=== PATIENT | female | born 1990 | race Caucasian/White ===

== ENCOUNTER 2025-02-27 19:56 | Emergency (ER) | payer OTHER, SELFPAY ==
[2025-02-27 20:40] VITALS: BP 125/76; PULSE 99; RESP 22; TEMP 36.7; O2SAT 98; BMI 25.0
--- NOTE | 2025-02-27 20:58 | ED_ITS ---
<Statement entered by Leatha Hercules DO - 02/28/25 00:02> I was consulted by the DAVID, and we discussed the complexity of the problems being addressed. I approved the treatment and management plan for this patient's care in the emergency department, thus performing a substantive portion of the medical decision making. Leatha Hercules DO Discharge Plan Disposition Patient Disposition: Home, Self-Care Condition: Good Prescriptions Prescriptions: New amoxicillin-pot clavulanate 875-125 mg tablet 1 tab PO BID 7 Days Qty: 14 0RF fluconazole 150 mg tablet 150 mg PO DAILY Qty: 2 0RF Rx Instructions: administer on day 1 of therapy and after antibiotic therapy. Referrals Follow up/Referrals: Mildred De APRN [Primary Care Provider] - See instructions Activity Restrictions/Add. Instructions Additional Instructions/Restrictions: Please return to the emergency department, with any worsening signs or symptoms, please take your antibiotic as prescribed with food, for 7 days, please come back for your rabies vaccination subsequent doses on day 3, 7, 14 and 28, follow-up with your primary care doctor. Clinical Impressions Clinical Impression: Cat bite of finger Instructions Patient Instructions: Animal Bites Print Language Print Language: Tongan Discharge ED Provider: Leatha Hercules General Adult HPI General Chief complaint: Animal Bite Stated complaint: 02/26/25 bit by feral cat, is own Time Seen by Provider: 02/27/25 20:23 Mode of Arrival: Ambulatory Source of Information: Patient Description of Symptoms (Recalled from ER Triage Doc. by RN): pt reports a feral cat scratched her and bit her left hand yesterday. History of Present Illness HPI narrative: 35-year-old female presents the emergency department with a cat bite/cat scratch on her left hand, that occurred yesterday affecting the 3rd, 4th and 5th digits are affected, as well as wrist, there is some redness and swelling around the area, patient was bit/scratched on the medial aspect of those digits, moves extremities to command, admits to subjective fever and chills, denies chest pain shortness of breath nausea vomiting constipation diarrhea, no abdominal pain, no urinary type symptomatology, patient is current everyday smoker (vapes), denies any alcohol use, does have prior history of/former alcohol abuse, recently was admitted for inpatient detox , on naltrexone, denies any other drug use, other past medical history consistent with anxiety/depression, triage vitals are grossly unremarkable. Patient is unsure of the cat's vaccination status describes it as a feral cat . Onset (ago): day(s) Related Data Previous Rx's ?Medication ?Instructions ?Recorded amoxicillin 875 mg-potassium 1 tab PO BID 7 days #14 tabs 02/27/25 clavulanate 125 mg tablet fluconazole 150 mg tablet 150 mg PO DAILY 1 dose #2 tabs 02/27/25 Allergies Allergy/AdvReac Type Severity Reaction Status Date / Time No Known Allergies Allergy Verified 02/27/25 20:39 [facility] Disclaimer: The information contained in this section may have been updated after the patient was seen, as this information can be updated by other users. Social History Smoking Status: Current every day smoker alcohol intake: former current occupational status: other Travel in the last 8 weeks?: None ROS Obtained: Yes All systems reviewed & no additional complaints except as documented Physical Exam General General appearance: alert and in no apparent distress Head Head exam: atraumatic and normocephalic Eye Eye exam: Present PERRL and EOMI ENT ENT exam: Present mucous membranes moist Neck Neck exam: Present normal inspection Chest Chest inspection: Present normal inspection and symmetric chest wall rise Respiratory Respiratory exam: Present normal lung sounds bilaterally; Absent respiratory distress Cardiovascular Cardiovascular exam: Present regular rate and normal rhythm Abdominal Exam Abdominal exam: Present soft; Absent tenderness, guarding or rebound Extremities Exam Extremities exam: Present normal inspection Neurological Exam Neurological exam: Present alert and oriented X3 Psychiatric Psychiatric exam: Present normal affect Skin Skin exam: Present warm, dry, erythema and other (Some mild erythema that is blanchable, around the 3rd, 4th and 5th digits, medial aspect of those digits, as well as the left wrist, with no lymphangitic streaking, otherwise neurovascular intact, patient moves from to command.) Medical Decision Making Medical Records Medical records reviewed: Yes I reviewed the patient's medical records. Screening: Per USPSTF and CDC recommendations, given the prevalence of disease in our region, it is our hospital?s policy to screen for HIV and viral Hepatitis for all patients aged 18 and over and those with ongoing risk factors. Miguel Inquiry Pt receiving controlled substance: No Miguel was queried for this patient: No Vital Signs: 02/27/25 20:40 02/27/25 22:10 Temperature 98.1 F 98.1 F Temperature Source Oral Pulse Rate 74 Pulse Rate [Right] 99 H Respiratory Rate 22 16 Blood Pressure 128/87 Blood Pressure [Right Arm] 125/76 Blood Pressure Mean [Right Arm] 92 02 Sat by Pulse Oximetry 98 Oxygen Delivery Method Room Air Orders (Tests/Meds): ED MEDICATIONS Discontinued Medications Generic Name Dose Route Start Last Admin Trade Name Freq PRN Reason Stop Dose Admin Amoxicillin/Clavulanate Potassium 1 each 02/27/25 20:53 02/27/25 21:44 Amoxicillin/Clavulanate Potassium 875/125mg Tablet PO 02/27/25 20:54 1 each ONCE ONE Administration Ibuprofen 800 mg 02/27/25 20:35 02/27/25 21:44 Ibuprofen 800 Mg Tablet PO 02/27/25 20:36 800 mg ONCE ONE Administration Rabies Immune Globulin 1,451.5 unit 02/27/25 20:59 02/27/25 21:50 Rabies Immune Globulin/Pf 300 Unit/Ml 5ml Vial IM 02/27/25 21:00 1,451.5 unit ONCE ONE Administration Rabies Vaccine 2.5 unit 02/27/25 21:00 02/27/25 21:50 Rabies Vaccine (Pcec)/Pf 2.5 Unit Vial IM 02/27/25 21:01 2.5 unit .ONCE ONE Administration Tetanus/Reduced Diphtheria/Acell Pertussis 0.5 ml 02/27/25 20:35 02/27/25 21:52 Tet/Diphth/Pert-Adult 0.5ml Syringe IM 02/27/25 20:36 0.5 ml .ONCE ONE Administration Medical Decision Narrative: 35-year-old female presents the emergency department with a cat bite/cat scratch to the left hand, differential diagnose include but not limited to cat bite, mammalian bite, cellulitis among others. I discussed patient case with any person Dr. Hercules Will give patient first dose of Augmentin 875 mg p.o. twice daily for 7 days for cat bite, patient opted to obtain rabies prophylaxis, tetanus prophylaxis, due to unknown vaccination status of the cat, will also give 800 mg Motrin p.o. for pain, as well as 150 mg p.o. Diflucan for yeast infection Prophylaxis. Patient was given strict ED return precautions, patient voiced understanding to go Contreet plan/discharge plan, will return on day 3, day 7, day 14 and day 28 for rabies subsequent vaccinations. Critical Care Critical Care Time Critical Care Time: No
[2025-02-27] MEDS: AMOXICILLIN/CLAVULANATE POTASSIUM 875/125MG TABLET 1 EACH PO (21:44)
[2025-02-27] MEDS: IBUPROFEN 800 MG TABLET PO (21:44)
[2025-02-27] MEDS: RABIES IMMUNE GLOBULIN/PF 300 UNIT/ML 5ML VIAL 1451.5 UNIT IM (21:50)
[2025-02-27] MEDS: RABIES VACCINE (PCEC)/PF 2.5 UNIT VIAL IM (21:50)
[2025-02-27] MEDS: TET/DIPHTH/PERT-ADULT 0.5ML SYRINGE 0.5 ML IM (21:52)
[2025-02-27 22:10] VITALS: BP 128/87; PULSE 74; RESP 16; TEMP 36.7; O2SAT 98
== END 2025-02-27 22:13 | disposition home or self-care (01) ==
PROVIDERS: Emergency Provider Emergency Medicine; PCP Nurse Practitioner
DX: S61.452A Open bite of left hand, initial encounter (principal); W55.01XA Bitten by cat, initial encounter; Z23 Encounter for immunization
CPT/HCPCS: 90375; 90471; 90472; 90675; 90715; 96372; 99284

== ENCOUNTER 2025-03-02 16:39 | Outpatient (CLI) | payer OTHER, SELFPAY ==
[2025-03-02] MEDS: RABIES VACCINE (PCEC)/PF 2.5 UNIT VIAL IM (16:55)
== END 2025-03-02 17:02 | disposition home or self-care (01) ==
LOC: INF 16:41
PROVIDERS: PCP Nurse Practitioner; Visit Provider Emergency Medicine
DX: S61.452A Open bite of left hand, initial encounter (principal)
CPT/HCPCS: 90675; 96372

== ENCOUNTER 2025-03-09 15:00 | Outpatient (CLI) | payer OTHER, SELFPAY ==
--- OUTSIDE RECORDS SUMMARY | 2023-04-22 15:45 | XMS_ITS | Encounter Summary ---
Author Organization [place] [address] Care Team Providers Care Coat Padder Name Role Phone Unavailable Primary Care Provider Unavailabl e Encounter Details Date Type Department Care Team (Latest Contact Info) Description 04/22/2023 3:45 PM EDT Hospital Encounter [facility] [address] [place] [address] Left without seen Social History Tobacco Use Types Packs/Day Years Used Date Smoking Tobacco: Every Day Cigarettes 1 12.8 Started: 06/07/2012 Smokeless Tobacco: Never Alcohol Use Standard Drinks/Week Comments Not Currently 6 (1 standard drink = 0.6 oz pure alcohol) Mj Anderson - 6 per day. Overall Financial Resource Strain ([facility]) Answe r Date Recorded How hard is it for you to pa y for the very basics like food, housing, medical care, and heating? Not hard at all 01/07/2021 PHQ-2 Answer Date Recorded PHQ-2 Total Score 0 11/18/2021 [facility] of Occupat ional Health - Occupational Stress Questionnaire Answer Date Recorded Do you feel stress - tense, restless, nervous, or anxious, or unable to sleep at night because your mind is troubled all the time - these days? Not at all 01/07/2021 Exercise Vital Sign Answer Date Recorde d On average, how many days pe r week do you engage in moderate to strenuous exercise (like a brisk walk)? 0 days 01/07/2021 On average, how many minutes do you engage in exercise at this level? 0 min 01/07/2021 Hunger Vital Sign Answer Date Recorded Within the past 12 months, y ou worried that your food would run out before you got the money to buy more. Never true 01/08/20 21 Within the past 12 months, t he food you bought just didn't last and you didn't have money to get more. Never true 01/07/2021 PRAPARE - Transportation Answer Date Re corded In the past 12 months, has l ack of transportation kept you from medical appointments or from getting medications? No 03/2021 In the past 12 months, has l ack of transportation kept you from meetings, work, or from getting things needed for daily living? No 01/07/2021 Comments No Sex and Gender Information Value Date Recorded Sex Assigned at Not on file Legal Sex Female 9:25 PM EDT Gender Identity Not on file Sexual Orientation Not on file COVID-19 Exposure Response Date Recorded In the last 10 days, have yo u been in contact with someone who was confirmed or suspected to have Coronavirus/COVID-19? No / Unsure 04/22/2023 3:43 PM EDT documented as of this encounter Functional Status * Is the person deaf or does he/she have serious difficulty hearing? Answer Date of Assessment Author No 11/18/2021 2:29 PM Annmarie Webster * Is the person blind or does he/she have serious difficulty seeing even when wearing glasses? Answer Date of Assessment Author No 11/18/2021 2:29 PM Annmarie Webster * Does this person have serious difficulty walking or climbing stairs? Answer Date of Assessment Author No 11/18/2021 2:29 PM Annmarie Webster * Does this person have difficulty dressing or bathing? Answer Date of Assessment Author No 11/18/2021 2:29 PM Annmarie Webster * Because of a physical, mental or emotional condition, does this person have difficulty doing errands alone such as visiting a doctor's office or shopping? Answer Date of Assessment Author No 11/18/2021 2:29 PM Annmarie Webster documented as of this encounter Mental Status * Because of a physical, mental or emotional condition, does this person have serious difficulty concentrating, remembering or making decisions? Answer Entry Date Author No 11/18/2021 2:29 PM Annmarie Webster documented in this encounter Plan of Treatment Not on file documented as of this encounter Goals Goal Patient Goal Type Associated Problems Recent Progress Patient-Stated? Author Blood Pressure < 140/90 Blood Pressure 140/86(2024 6:15 PM EDT) No Destinee Galvez MD Maintain a healthy diet, exercise regularly and maintain an ideal body weight General No Reyna Bruce MA Stay Tobacco Free Lifestyle No Reyna Bruce MA documented as of this encounter Visit Diagnoses Not on filedocumented in this encounter
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
--- OUTSIDE RECORDS SUMMARY | 2025-03-09 15:04 | XMS_ITS | Clinical Summary ---
Author Organization [facility] Address [address] [place], [place] [id number] Care Team Providers Care Medical Underwriter Name Role Phone Dax Escobedo MD Primary Care Provider [phone] Allergies No known active allergies Medications ibuprofen (MOTRIN) 600 mg PO tablet Take 1 Tab by mouth every 6 hours as needed (Moderate pain or cramping). 60 Tab 0 10/13/2012 Active oxyCODONE-acetam inophen (PERCOCET) 5-325 mg PO per tablet Take 1-2 Tabs by mouth every 4 hours as needed (Moderate to severe). 30 Tab 0 10/13/2012 Active Active Problems Problem Noted Date Diagnosed Date Single delivery by section 10/09/2012 PIH ( induced hypertension) 10/08/2012 Social History Tobacco Use Types Packs/Day Years Used Date Smoking Tobacco: Former Cigarettes Alcohol Use Standard Drinks/Week Comments No 0 (1 standard drink = 0.6 oz pur e alcohol) Comments Unknown Sex and Gender Information Value Date Recorded Sex Assigned at Not on file Legal Sex Female 7:24 PM EST Gender Identity Not on file Sexual Orientation Not on file Last Filed Vital Signs Vital Sign Reading Time Taken Comments Blood Pressure 120/82 10/14/2012 9:59 AM EST Pulse 99 10/14/2012 9:59 AM EST Temperature 36.7 C (98 F) 10/14/2012 9:59 AM EST Respiratory Rate 16 10/14/2012 9:59 AM EST Oxygen Saturation 98% 10/14/2012 12:20 AM EST Inhaled Oxygen Concentration - - Weight 102.1 kg (225 lb) 10/12/2012 10:45 AM EST Height 170.2 cm (5' 7 ) 10/12/2012 10:45 AM EST Body Mass Index 35.24 10/12/2012 10:45 AM EST Plan of Treatment Not on file Care Teams Medical Underwriter Relationship Specialty Start Date End Date Dax Escobedo MD [address] [place] [address] PCP - General Obstetrics & Gynecology 10/06/12
--- OUTSIDE RECORDS SUMMARY | 2025-03-09 15:04 | XMS_ITS | Encounter Summary ---
Author Organization [place] [address] Care Team Providers Care Tariff Expert Name Role Phone Slick Owens MD Primary Care Provider [phone] Reason for Visit * Reason Onset Date Comments Medication Refill 01/27/2025 Encounter Details Date Type Department Care Team (Late st Contact Info) Description 01/27/2025 Refill SEP Mario [address] [place] [id number] Mildred De, GAME AUTHOR [address] [place] [address] Medication Refill Social History Tobacco Use Types Packs/Day Years Used Date Smoking Tobacco: Every Day Cigarettes 1 12.8 Started: 06/07/2012 Smokeless Tobacco: Never Alcohol Use Standard Drinks/Week Comments Not Currently 6 (1 standard drink = 0.6 oz pure alcohol) Mj Fletcher Justin - 6 per day. Overall Financial Resource Strain (CARDIA) Answe r Date Recorded How hard is it for you to pa y for the very basics like food, housing, medical care, and heating? Not hard at all 01/07/2021 PHQ-2 Answer Date Recorded PHQ-2 Total Score 0 11/18/2021 [facility] of Occupat ional Health - Occupational Stress [...] on file documented as of this encounter Functional Status * Is the person deaf or does he/she have serious difficulty hearing? Answer Date of Assessment Author No 11/18/2021 2:29 PM Annmarie Webster * Is the person blind or does he/she have serious difficulty seeing even when wearing glasses? Answer Date of Assessment Author No 11/18/2021 2:29 PM Annmarie Webster Does this person have serious difficulty walking [...] Refills Last Filled Start Date End Date norgestimate-ethiny l estradioL (TRI-SPRINTEC, 28,) 0.18/0.215/0.25 mg-0.035mg (28) Oral TabletIndications:C ontraceptive education Take 1 Tablet by mouth daily. 28 Tablet 11 01/29/2025 documented in this encounter Plan of Treatment Not on file documented as of this encounter Goals Goal Patient Goal Type Associated Problems Recent Progress Patient-Stated? Author Blood Pressure < 140/90 Blood Pressure 140/86(2024 6:15 PM EDT) Destinee Alford MD Maintain a healthy diet, exercise regularly and maintain an ideal body weight General Reyna Hair MA Stay Tobacco Free Lifestyle No Reyna Bruce MA documented as of this encounter Visit Diagnoses Diagnosis Contraceptive education Other general counseling and advice for contraceptive management documented in this encounter Discontinued Medications Medication Sig Discontinue Reason Start Date End Da te norgestimate-ethinyl estradioL (TRI-SPRINTEC, 28,) 0.18/0.215/0.25 mg-35 mcg (28) Oral TabletIndications:Contra ceptive education Take 1 Tablet by mouth daily. Reorder 12/27/2024 01/27/2025 documented as of this encounter Care Teams Tariff Expert Relationship Specialty Start Date End Date Slick Owens MD [address] [facility] [place] [address] PCP - General Family Medicine 03/01/24 documented as of this encounter
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
--- OUTSIDE RECORDS SUMMARY | 2025-03-09 15:04 | XMS_ITS | Encounter Summary ---
Author [place] [address] Care Team Providers Care Cabinet And Trim Installer Name Role Phone Slick Owens MD Primary Care Provider [phone] Reason for Visit * Reason Onset Date Comments Other 02/28/2025 Question on rabi es vaccine Patient Returning Call 02/28/2025 Vaccine Encounter Details Date Type Department Care Team (Late st Contact Info) Description 02/28/2025 Telephone SEP Mario [address] [place] [address] Mildred De APRN [address] [place] [address] Other (Question on rabies vaccine ); Patient Returning Call (Vaccine ) Social History Tobacco Use Types Packs/Day Years [...] Date Recorded PHQ-2 Total Score 0 11/18/2021 [facility] - Occupational Stress [...] PM Annmarie Webster documented in this encounter Miscellaneous Notes * Telephone Encounter - Georgina Acuña MA - 03/01/2025 1:22 PM EDT Attempted to contact patients mother, no answer and voicemail is full. * Telephone Encounter - Mildred De APRN - 03/01/2025 1:10 PM EDT I have not received the animal information. I would recommend she get the copy and take it to a vetclinic to review to vaccinations as I am not familiar with all the names of vaccines for animals. If they are able to confirm that the cat has had rabies vaccine, then she can stop the vaccines. If not, then she should continue them. Thanks. * Telephone Encounter - Georgina Acuña MA - 03/01/2025 1:01 PM EDT FYI? * Telephone Encounter - Reba Bolton RMA - 03/01/2025 12:59 PM EDT Select the most appropriate reason for this telephone message: Patient Returning Call Reason for call: mom returning Joanne's call Information relayed to patient: called office, unable to reach Patient has additional questions: Yes,please call mom back Further follow-up needed? yes Return Method of Communication: Phone Call Additional Information: N/A * Telephone Encounter - Eleonora Adames RMA - 03/01/2025 12:51 PM EDT Select the most appropriate reason for this telephone message: Patient Returning Call Reason for call: vaccine Information relayed to patient: If the cat is vaccinated, the patient does not need to continue with the rabies vaccine series. Already getting the first vaccines wont hurt her. Patient has additional questions: Mother stated that the national van owner operator of the cat was going to send recordspf vaccine to PCP and she wants to know if she got them Further follow-up needed? yes Return Method of Communication: Phone Call Additional Information: Mother stated that she gave the national van owner operator of the cat information on where it needs to be sent. She does not want to stop the vaccines unless Mildred has seen them * Telephone Encounter - Georgina Acuña MA - 03/01/2025 11:42 AM EDT lmtrc * Telephone Encounter - Mildred De APRN - 02/28/2025 5:08 PM EDT If the cat is vaccinated, the patient does not need to continue with the rabies vaccine series. Already getting the first vaccines wont hurt her. * Telephone Encounter - Leatha Castro MA - 02/28/2025 4:56 PM EDT Can you please advise? * Telephone Encounter - Eleonora Adames RMA - 02/28/2025 4:28 PM EDT Select the most appropriate reason for this telephone message: Other Who is calling (name & relationship to patient if not the patient): Mother What is needed OR why are they calling: Pt was bit by a cat at halfway started pt on Rabies vaccine got the starter vaccine. Found out that cat had vaccines and mother has questions on rather pt needs to continue the vaccines or what should she do. She wants to know about the pre expose vaccinestoo She would like someone to call her back When is this needed by: today Where does this information need to go: PCP Return Method of Communication: Phone Call Additional information:N/A documented in this encounter Plan of Treatment [...] Diagnoses Not on filedocumented in this encounter Care Teams Cabinet And Trim Installer Relationship Specialty Start Date End Date Slick Owens MD [address] [facility] [place] [address] PCP - General Family Medicine 03/01/24 documented as of this encounter
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
--- OUTSIDE RECORDS SUMMARY | 2025-03-09 15:04 | XMS_ITS | Encounter Summary ---
Author Organization [place] [address] Care Team Providers Care Food And Beverage Director Name Role Phone Slick Owens MD Primary Care Provider [phone] Encounter Details Date Type Department Care Team (Latest Contact Info) Description 02/18/2025 External Contact [facility] [address] [place] [address] [place] [address] Salima Baez MD [address] [place] [address] Constipation, unspecified constipation type (Primary Dx); Dermatitis; Abrasions of multiple sites; Hypoglycemia; Hypertriglyceridemia ; Macrocytosis; Overweight (BMI 25.0-29.9); Nicotine use disorder; Screening for STDs (sexually transmitted diseases); Vaginal itching Social History Tobacco Use Types Packs/Day Years [...] Date Recorded PHQ-2 Total Score 0 11/18/2021 [facility] - Occupational Stress [...] Assessment Author No 11/18/2021 2:29 PM JABARI Cali Annmarie Narendra documented as of this encounter Mental Status * Because of a physical, mental or emotional condition, does this person have serious difficulty concentrating, remembering or making decisions? Answer Entry Date Author No 11/18/2021 2:29 PM Annmarie Webster documented in this encounter Progress Notes * Salima Baez MD - 02/18/2025 11:32 AM EDT Consultation Follow-Up - [place]: Patient Identifiers Patient Identifiers: Patient Name: Yuliya Ortiz, Date of : 1990, Age: 35, Admission Date: 02/12/2025 Consultation Reason for the consult: Constipation Skin Rash HPI/patient complaint: Yuliya Ortiz is a 35 years old Female admitted 02/12/2025 seen in follow-up. No BM 6 days. Denies rectal bleeding, abdominal pain, N/V/D Normal appetite Not attending group Also, itchy rash on face, no exposures, lotion not helping. Road rash left lateral knee Have there been any changes to the Review of Systems? If yes indicate below.: Yes Constitutional: Fatigue Cardiovascular: No Complaints Respiratory: No Complaints Gastrointestinal: Constipation Genitourinary: No Complaints Musculoskeletal: No Complaints Skin: Rash, Itching, Dryness, Cuts/abrasions Neurological: No Complaints Endocrine: No Complaints Temperature: ?? F 97.7 Pulse: B/min 89 Blood Pressure: Systolic (mmHg) 112, Diastolic (mmHg) 86 Respirations: Per Minute 16 BMI: BMI: 25.1 Objective VS/physical exam: General: disheveled CV: RRR, no murmur Lungs: clear to auscultation bilaterally Abdomen: non-distended, soft, non-tender Extremities: no edema Neurological: alert, oriented, cooperative, moves all extremities spontaneously Psych: Mood: Anxious Skin: fine, raised erythematous, tiny papules chin and mandibular area, 1.5 excoriated plaque Left lateral lulu Labs: 02/14/2025 03:11 PM HIV Ab/p24 Ag Screen Non Reactive 02/14/2025 03:11 PM HDL Cholesterol 47 mg/dL 02/14/2025 03:11 PM Glucose 58 mg/dL 02/14/2025 03:11 PM Creatinine 0.92 mg/dL 02/14/2025 03:11 PM Bilirubin, Total 0.3 mg/dL 02/14/2025 03:11 PM Ureaplasma spp RAJAT TNP 02/14/2025 03:11 PM Hemoglobin 12.2 g/dL 02/14/2025 03:11 PM ALT (SGPT) 13 IU/L 02/14/2025 03:11 PM Immature Granulocytes 0 % 02/14/2025 03:11 PM Triglycerides 156 mg/dL 02/14/2025 03:11 PM Carbon Dioxide, Total 23 mmol/L 02/14/2025 03:11 PM WBC 6.8 x10E3/uL 02/14/2025 03:11 PM Chlamydia trachomatis, RAJAT TNP 02/14/2025 03:11 PM TSH 0.554 uIU/mL 02/14/2025 03:11 PM eGFR 84 mL/min/1.73 02/14/2025 03:11 PM Globulin, Total 2.2 g/dL 02/14/2025 03:11 PM Lymphs 34 % 02/14/2025 03:11 PM Eos (Absolute) 0.2 x10E3/uL 02/14/2025 03:11 PM Lymphs (Absolute) 2.3 x10E3/uL 02/14/2025 03:11 PM Neutrophils (Absolute) 3.7 x10E3/uL 02/14/2025 03:11 PM Basos 1 % 02/14/2025 03:11 PM VLDL Cholesterol Von 27 mg/dL 02/14/2025 03:11 PM Eos 3 % 02/14/2025 03:11 PM Baso (Absolute) 0.0 x10E3/uL 02/14/2025 03:11 PM Chloride 105 mmol/L 02/14/2025 03:11 PM RBC 3.81 x10E6/uL 02/14/2025 03:11 PM Mycoplasma hominis RAJAT TNP 02/14/2025 03:11 PM Monocytes(Absolute) 0.5 x10E3/uL 02/14/2025 03:11 PM Hematocrit 37.6 % 02/14/2025 03:11 PM Mycoplasma genitalium RAJAT NSPR 02/14/2025 03:11 PM Monocytes 8 % 02/14/2025 03:11 PM Alkaline Phosphatase 106 IU/L 02/14/2025 03:11 PM Hep C Virus Ab Non Reactive 02/14/2025 03:11 PM Potassium 4.6 mmol/L 02/14/2025 03:11 PM LDL Chol Calc (NIH) 59 mg/dL 02/14/2025 03:11 PM Albumin 4.0 g/dL 02/14/2025 03:11 PM Protein, Total 6.2 g/dL 02/14/2025 03:11 PM T4,Free(Direct) 1.10 ng/dL 02/14/2025 03:11 PM Calcium 8.7 mg/dL 02/14/2025 03:11 PM Neisseria gonorrhoeae, RAJAT TNP 02/14/2025 03:11 PM BUN/Creatinine Ratio 17 02/14/2025 03:11 PM Trich vag by RAJAT TNP 02/14/2025 03:11 PM Specimen Status Report [facility] 02/14/2025 03:11 PM MCV 99 fL 02/14/2025 03:11 PM Neutrophils 54 % 02/14/2025 03:11 PM Hemoglobin A1c 5.2 % 02/14/2025 03:11 PM RDW 12.1 % 02/14/2025 03:11 PM MCHC 32.4 g/dL 02/14/2025 03:11 PM MCH 32.0 pg 02/14/2025 03:11 PM [facility] 02/14/2025 03:11 PM Immature Grans (Abs) 0.0 x10E3/uL 02/14/2025 03:11 PM Sodium 143 mmol/L 02/14/2025 03:11 PM Cholesterol, Total 133 mg/dL 02/14/2025 03:11 PM BUN 16 mg/dL 02/14/2025 03:11 PM AST (SGOT) 8 IU/L 02/14/2025 03:11 PM Platelets 336 x10E3/uL 12/16/2024 Lymphs (Absolute) 2.4 x10E3/uL 12/16/2024 RDW [...] T4,Free(Direct) 1.05 ng/dL 12/16/2024 Chloride 103 mmol/L Assessment and Plan: Constipation: -Colace 100 mg BID, Miralax QD PRN -benign abdominal exam without worrisome findings. -behavioral interventions such toileting after meals, allow adequate time and privacy for bowel movements. -initiate activity such as 150 minutes weekly of movement or exercise. -ensure adequate fluids and increase fiber in the diet. -follow-up with PCP at discharge for continued evaluation. Dermatitis: -Aquaphor BID x 5 days Abrasion LLE: -Aquaphor BID x 5 days Hypoglycemia: -02/14/25 Glucose 58 -frequent small meals. -Asymptomatic Hypertriglyceridemia -02/14/25 TG 156 drawn @ 1511 -repeat FLP with PCP, fasting -follow-up with PCP for continued monitoring Macrocytosis -MCV 99 02/14/25 -Multivitamin/Folic Acid/Thiamine -Follow-up with PCP at discharge for evaluation. Overweight (BMI 25.0-29.9) -Current BMI 25.1. -TSH 12/16/2024. -Encourage to maintain a healthy diet, exercise regularly, and maintain an ideal body weight. Nicotine Use Disorder: -Declines tobacco/nicotine cessation. -Continue to [employer] patient on the risks associated with tobacco/nicotine use and urge cessation. -patient offered nicotine replacement therapy. Screening for STDs (sexually transmitted diseases) - Patient requesting routine STD screening. Reports recent sexual encounter without protection. -HIV, HCV antibody, gonorrhea, chlamydia, trichomonas screenings ordered. -02/14/25 HIV and HCV NR, GC/Chl, BV/Trich tests not performed due to collection issues Vaginal itching -Stable -S/P Diflucan 150 mg p.o. tablet ordered one-time only. Electronically Signed By: Salima Baez MD, 02/18/2025 11:32 documented in this encounter Plan of Treatment [...] as of this encounter Visit Diagnoses Diagnosis Constipation, unspecified constipation type- Primary Dermatitis Contact dermatitis and other eczema, due to unspecified cause Abrasions of multiple sites Abrasion or friction burn of other, multiple, and unspecified sites, without mention of infection Hypoglycemia Hypoglycemia, unspecified Hypertriglyceridemia Pure hyperglyceridemia Macrocytosis Other specified diseases of blood and blood-forming organs Overweight (BMI 25.0-29.9) Overweight Nicotine use disorder Tobacco use disorder Screening for STDs (sexually transmitted diseases) Screening examination for venereal disease Vaginal itching Pruritus of genital organs documented in this encounter Care Teams Food And Beverage Director Relationship Specialty Start Date End Date Slick Owens MD [address] [facility] [place] [address] PCP - General Family Medicine 03/01/24 documented as of this encounter
--- OUTSIDE RECORDS SUMMARY | 2025-03-09 15:04 | XMS_ITS | Encounter Summary ---
Author [place] [address] Care Team Providers Care Emr Implementation Specialist Name Role Phone Slick Owens MD Primary Care Provider [phone] Reason for Visit * Reason Onset Date Comments Medication Management 12/28/2024 Decrease d ose on prozac, add buspar to daily medication regimen, and mom wants to talk to nurse at office regarding labs for 12/27/24 Encounter Details Date Type Department Care Team (Late st Contact Info) Description 12/28/2024 Telephone [facility] [address] [place] [address] Mildred De APRN [address] [place] [address] Medication Management (Decrease dose on prozac, add buspar to daily medication regimen, and mom wants to talk to nurse at office regarding labs for 12/27/24) Social History Tobacco Use Types Packs/Day Years [...] Date Recorded PHQ-2 Total Score 0 [facility]/18/2021 [facility] - Occupational Stress Questionnaire Answer Date Recorded [...] Telephone Encounter - Georgina Acuña MA - 12/29/2024 8:11 AM EDT Attempted to contact patient to go over lab results from patients appointment the other day. * Telephone Encounter - Reba Bolton RMA - 12/28/2024 3:37 PM EDT Select the most appropriate reason for this telephone message: Medication Management/Problem Who is calling? Other pt's mom What medication(s) do you have concerns about: FLUoxetine (PROZAC) 20 mg Oral Capsule (Discontinued) 90 Capsule 3 08/17/2023 08/17/2023 Sig - Route: Take 1 Capsule by mouth daily. - Oral Mom is calling requesting PCP to decrease dose for prozac 20 mg to 10 mg as she feels like patient is being over medicated - her anxiety is starting to keep back up again x today - please advise mom. Prescribing provider: Antwon Arshad MD What are your concerns/request: decrease in dosage Desired outcome: Decrease in dosage Last appointment date: 12/27/24 last seen by PATO De Pharmacy: [id number] - [place] [address] - [address] - [phone] Return Method of Communication: Phone Call Additional Information: mom would like to speak with a nurse at the office in regards to patient's lab work she had completed yesterday - call center did not release any results to mom as patient is over 16 and there is a test and STD results to go over. Mom states she gave patient her 1st dose of buspar and she did really well on this and mom wants toadd this medication to her daily regimen - please advise mom. documented in this encounter Plan of Treatment [...] on filedocumented in this encounter Care Teams Emr Implementation Specialist Relationship Specialty Start Date End Date Slick Owens MD [address] [facility] [place] [address] PCP - General Family Medicine 03/01/24 documented as of this encounter
--- OUTSIDE RECORDS SUMMARY | 2025-03-09 15:04 | XMS_ITS | Encounter Summary ---
Author Organization [place] [address] Care Team Providers Care Business Test Analyst Name Role Phone Slick Owens MD Primary Care Provider [phone] Encounter Details Date Type Department Care Team (Late st Contact Info) Description 02/27/2025 Orders Only [facility] [address] [place] [address] Danielle Wilkerson, [facility] Social History Tobacco Use Types Packs/Day Years [...] Recorded PHQ-2 Total Score 0 11/18/2021 [facility] Occupat ional [facility] - Occupational Stress [...] Refills Last Filled Start Date End Date naltrexone microspheres (VIVITROL) IM Suspension,Sust.Rel ease Recon Inject 4.2 mL into the muscle every 28 days. 1 Each 02/27/2025 documented in this encounter Plan of Treatment Not on file documented as of this encounter Goals Goal Patient Goal Type Associated Problems Recent Progress Patient-Stated? Author Blood Pressure < 140/90 Blood Pressure 140/86(2024 6:15 PM EDT) No Desitnee Galvez MD Maintain a healthy diet, exercise regularly and maintain an ideal body weight General No Reyna Bruce MA Stay Tobacco Free Lifestyle No Reyna Bruce MA documented as of this encounter Visit Diagnoses Not on filedocumented in this encounter Care Teams Business Test Analyst Relationship Specialty Start Date End Date Slick Owens MD [address] [facility] [address] [place] [id number] PCP - General Family Medicine 03/01/24 documented as of this encounter
--- OUTSIDE RECORDS SUMMARY | 2025-03-09 15:04 | XMS_ITS | Clinical Summary ---
Author Organization [facility] Address [address] [place] [phone] Phone Care Team Providers Care Tree Topper Name Role Phone Joe Viola WHYTE Primary Care Physician [phone] Conditions or Problems Problem Name Problem Code Onset Date Status Entry Date Provider Comment Standard Description Annotate Body mass index (BMI) 29.0-29.9; adult Z68.29 (ICD-10-CM ) 10/24 Active 10/24 Amber Conde APRN Body mass index [BMI] 29.0-29.9, adult Body mass index (BMI) 28.0-28.9; adult Z68.28 (ICD-10-CM ) 11/22 Correction 11/22 Amber Conde APRN Body mass index [BMI] 28.0-28.9, adult Sinusitis-ac darcie 42027813 (SNOMED CT) 10/24 Inactive 10/24 Amber Conde APRN Acute sinusitis Sore throat 522408770 (SNOMED CT) 10/24 Inactive 10/24 Amber Conde APRN Pain in throat Sinusitis-ac darcie 90985085 (SNOMED CT) 10/24 Inactive 10/24 Amber Conde APRN Acute sinusitis Body mass index (BMI) 28.0-28.9; adult Z68.28 (ICD-10-CM ) 11/22 Removed 11/22 Yohana Salas APRN Body mass index [BMI] 28.0-28.9, adult [facility] Lack of physical exercise Z72.3 (ICD-10-CM ) 11/22 Active 11/22 Yohana Lennyert ENVIRONMENTAL PERMITTING SPECIALIST Lack of physical exercise [facility] Financial insecurity Z59.86 (ICD-10-CM ) 11/22 Active 11/22 Yohana Eppert ENVIRONMENTAL PERMITTING SPECIALIST Financial insecurity [facility] Transportati on insecurity Z59.82 (ICD-10-CM ) 11/22 Active 11/22 Yohana Galvezert ENVIRONMENTAL PERMITTING SPECIALIST Transportation insecurity [facility] Lack of adequate food Z59.48 (ICD-10-CM ) 11/22 Active 11/22 Yohana Eppert ENVIRONMENTAL PERMITTING SPECIALIST Other specified lack of adequate food Screening for 689344421 (SNOMED CT) 11/22 Active 11/22 Yohana Salas APRN Procedure carried out on subject Body mass index (BMI) 25.0-25.9; adult Z68.25 (ICD-10-CM ) 10/11 Correction 10/11 Yohana Salas APRN Body mass index [BMI] 25.0-25.9, adult Std screening 572983454 (SNOMED CT) 11/22 Active 11/22 Yohana Salas APRN Venereal disease screening Screening for chlamydia 047703819 (SNOMED CT) 10/11 Active 10/11 Usama Hills MD Procedure carried out on subject Screening Pap smear exam for cervical cancer 666883902 (SNOMED CT) 10/11 Active 10/11 Usama Hills MD Procedure carried out on subject Body mass index (BMI) 25.0-25.9; adult Z68.25 (ICD-10-CM ) 10/11 Removed 10/11 Usama Hills MD Body mass index [BMI] 25.0-25.9, adult Body mass index (BMI) 26.0-26.9; adult Z68.26 (ICD-10-CM ) 10/07 Correction 10/07 Usama Hills MD Body mass index [BMI] 26.0-26.9, adult Urinary tract infection 47440934 (SNOMED CT) 10/11 Active 10/11 Usama Hills MD Urinary tract infectious disease Pelvic inflammatory disease, acute 874091425 (SNOMED CT) 10/11 Active 10/11 Usama Hills MD Acute pelvic inflammatory disease Body mass index (BMI) 26.0-26.9; adult Z68.26 (ICD-10-CM ) 10/07 Removed 10/07 Della Barragan RN Body mass index [BMI] 26.0-26.9, adult Bacterial vaginosis 573417180 (SNOMED CT) 10/07 Active 10/07 Della Barragan RN Bacterial vaginosis Gonorrhea, acute 57003317 (SNOMED CT) 10/07 Active 10/07 Della Barragan RN Gonorrhea Acute cystitis 95129883 (SNOMED CT) Active Chastity Weinstein ENVIRONMENTAL PERMITTING SPECIALIST Acute cystitis GENERAL COUNSELING PRESCRIPTION ORAL CONTRACEPTS Z30.011 (ICD-10-CM ) 06/12 Active 06/12 Thelma Greenfield CNM Encounter for initial prescription of contraceptive pills INTRAUTERINE CONTRACEPTIV E DEVICE REMOVAL 66860314 (SNOMED CT) 06/12 Active 06/12 Kristine Whitley MA Removal of intrauterine device ANXIETY DISORDER, SITUATIONAL, MILD 027945650 (SNOMED CT) 02/21 Active 02/21 Dax Escobedo Anxiety disorder VULVOVAGINIT IS 10721065 (SNOMED CT) 02/21 Inactive 02/21 Dax Escobedo Vulvovaginitis NORMAL 1ST Z34.00 (ICD-10-CM ) 04/14 Resolved 04/14 Dax Escobedo Encounter for supervision of normal first , unspecified trimester NORMAL 1ST Z34.00 (ICD-10-CM ) 04/14 Removed 04/14 Usama Hills MD Encounter for supervision of normal first , unspecified trimester Medications Medication Instructions Start Date Stop Date Generic Name NDC Provider IBUPROFEN 600 MG TABS Take 1 tablet by mouth every six hours for pain/fever Take with food ibuprofen 88783976569 Amber Conde APRN Astepro Allergy 205.5 mcg (0.15 %) spray,non-aerosol Corn 1 spray into both nostrils twice a day azelastine 42656041464 Amber Conde APRN MUCINEX MAXIMUM STRENGTH 1200 MG [id number] Take 1 tablet by mouth every twelve hours NEEDED FOR CONGESTION. TAKE WITH 8OZ OF WATER. guaifenesin 69265897586 Amber Conde APRN ZITHROMAX Z-CECIL 250 MG TABS Take 2 tablet by mouth once a day as directed for 1 days, then take 1 tablet by mouth once a day as directed for 4 days azithromycin 39296862682 Amber Conde APRN VENTOLIN HFA 108 (90 Base) MCG/ACT AERS Inhale 2 puff using inhaler every four to six hours as directed NEEDED FOR WHEEZING AND FOR SHORTNESS OF BREATH albuterol sulfate 53069442784 Amber Conde APRN METRONIDAZOLE 0.75 % GEL Insert 1 applicatorful into vagina once a day for 5 days 10/11 metronidazole 70942508111 Usama Hills MD CEPHALEXIN 500 MG CAPS Take 1 capsule by mouth four times a day 10/16 cephalexin 37035667769 Usama Hills MD METRONIDAZOLE 500 MG TABS Take 1 tablet by mouth twice a day 10/21 metronidazole 62673662851 Usama Hills MD ZITHROMAX 250 MG TABS Take 1 tablet by mouth once a day 10/21 azithromycin 24177747943 Usama Hills MD METRONIDAZOLE 0.75 % GEL Insert 1 applicatorful into vagina once a day for 5 days metronidazole 52913973583 Belén Rucker APRN MACROBID 100 MG CAPS Take 1 capsule by mouth twice a day for 5 days 10/07 nitrofurantoin monohyd/m-cryst 52166536061 Hyacinth Tellez MA DIFLUCAN 150 MG TABS Take 1 tablet by mouth single dose May repeat in 7 days /04 fluconazole 41684946280 Hyacinth Christian Rosalinda BROWN MACROBID 100 MG CAPS Take 1 capsule by mouth twice a day for 5 days nitrofurantoin monohyd/m-cryst 08489808142 Chastity Weinstein APRN DIFLUCAN 150 MG TABS Take 1 tablet by mouth single dose May repeat in 7 days fluconazole 00574712989 Chastity Weinstein ENVIRONMENTAL PERMITTING SPECIALIST TRI-SPRINTEC 0.18/0.215/0.25 MG-35 MCG TABS 1 daily 06/12 NORGESTIM-ETH ESTRAD TRIPHASIC 01075838328 Thelma Greenfield CNM MIRENA (52 MG) 20 MCG/24HR INTRAUTERINE INTRAUTERINE DEVICE 1 DEVICE 06/12 LEVONORGESTREL 62768642383 Thelma Greenfield CNM MIRENA (52 MG) 20 MCG/24HR INTRAUTERINE INTRAUTERINE DEVICE 1 DEVICE LEVONORGESTREL 98284089090 Dax Escobedo NITROFURANTOIN MACROCRYSTAL 100 MG CAPS Take 1 capsule by mouth every 12 hours for seven days to treat urinary tract infection 02/21 NITROFURANTOIN MACROCRYSTAL 65212344781 Kristine Whitley MA NITROFURANTOIN MACROCRYSTAL 100 MG CAPS Take 1 capsule by mouth every 12 hours for seven days to treat urinary tract infection NITROFURANTOIN MACROCRYSTAL 67484092659 Usama Hills MD Medications Administered No information available. Allergies, Adverse Reactions, Alerts Allergy Name Reaction Description Start Date Severity Statu s Provider MACROBID Moderate Active Della farrar RN Results Date Name Value Unit Range Flag Description Clinical Summary: Preload En try for OB GC DNA PROBE NEGATIVE Neisser ia gonorrhoeae DNA [Presence] in Cervical mucus by RAJAT with probe detection CHLAMYD DNA NEGATIVE Chlamydi a trachomatis and Neisseria gonorrhoeae and Trichomonas vaginalis DNA [Identifier] in Specimen by RAJAT with probe detection Lab Report: THINPREP TIS PAP AND HPV mRNA E6/E7, CHLAMYDIA/N.GONORRHOEAE ... HPV RESULT Not Detected Not Detected N Human papilloma virus 16 and 18 and 31+33+35+39+45+51+52 +56+58+59+66+68 DNA [Interpretation] in Cervix Office Visit: STD screen PREG TST URN negative beta HC G, urine, semiquantitative SPEC GR URIN 1.015 Specific gravity of Urine by Test strip PH URINE 6.0 pH of Urine by Test strip APPEARANCE U clear Appearan ce of Urine UA COLOR yellow Color of Uri ne GLUCOSE, URN negative Glucose [Mass/volume] in Urine by Test strip BILIRUBIN UR negative Bilirub in.total [Presence] in Urine by Test strip KETONES URN negative Ketones [Mass/volume] in Urine by Test strip BLOOD UR DIP negative blood i n urine (hemoglobin) by dipstick PROTEIN, URN negative protein , urine, semiquantitative (dipstick) UROBILINOGEN negative Urobili nogen [Presence] in Urine by Test strip NITRITE URN negative Nitrite [Presence] in Urine by Test strip WBC DIPSTK U negative Leukocy te esterase [Presence] in Urine by Test strip Lab Report: BV/VAGINITIS PIT[place] EL DNA PROBE, CHLAMYDIA/N. GONORRHOEAE RNA, ... DNAPROBECAND NOT DETECTED NOT DETECTED N Katie guilliermondii DNA [Presence] in Specimen by RAJAT with probe detection VAGCULTGARDN NOT DETECTED NOT DETECTED N Vaginal Culture Gardnerella TRICHO WET NOT DETECTED NOT DETECTED N Trichomonas vaginalis [Presence] in Genital specimen by Wet preparation Office Visit: sinusitis LABS ORDERED Strep Screen 89947 Laboratory tests ordered RAPID STREP negative Streptoc occus pyogenes DNA [Presence] in Throat by RAJAT with non-probe detection Plan of Care Type Date Detail Pending order Strep Screen 878 80 Pending order T2 BV Yeast Tric h Culture (Affirm) Pending order T1 G.C. Chlamydi a Pending order Urine Dip Auto 8 1003 Pending order Test 8 1025 Pending order Injection(s) Ord ered Pending order Urine Dip Auto 8 1003 Pending order Test 8 1025 Pending order T1 ThinPrep w HR HPV/GC/Chlamydia mRNA E6/E7 Pending order T2 BV Yeast Tric h Culture (Affirm) Pending order Injection(s) Ord ered Pending order T1 G.C. Chlamydi a Pending order T2 BV Yeast Tric h Culture (Affirm) Pending order Test 8 1025 Pending order Bacterial Vagino sis/Vaginitis Panel Pending order Urine Dip Auto 8 1003 Pending order Genetic Counseli ng Pending order Ultras ound with Consult Pending order Urine Culture Patient education Patient Educat ion Given Patient education Patient Educat ion Given Procedures Code Procedure Name Date Entry Date [facility] [email or web address]]-[id number] Medication Reconciliation CPT-3074F Most recent systolic blood pressure <130 mm Hg CPT-3079F Most recent diastoli c blood pressure 80-89 mm Hg CPT-1159F Medication list docu mented in medical record CPT-1160F Review of all medica tions by a prescribing practitioner SCT-[id number] Giving encouragement to exercise SCT-6648232 Former smoker CPT-1159F Medication list docu mented in medical record [facility] [email or web address]]-[id number] Medication Reconciliation CPT-3074F Most recent systolic blood pressure <130 mm Hg CPT-3079F Most recent diastoli c blood pressure 80-89 mm Hg CPT-1160F Review of all medica tions by a prescribing practitioner [facility] 28262 T2 BV Yeast Trich Culture (Affirm) 11/22 [facility] 17920 T1 G.C. Chlamydia Inj Order Injection(s) Ordered CPT-85613 Urine Dip Auto 29485 CPT-28995 Test 81465 [facility] 31283 T1 ThinPrep w HR HPV /GC/Chlamydia mRNA E6/E7 [facility] 44505 T2 BV Yeast Trich Culture (Affirm) 10/11 CPT-3074F Most recent systolic blood pressure <130 mm Hg CPT-3079F Most recent diastoli c blood pressure 80-89 mm Hg CPT-1159F Medication list docu mented in medical record [id number] 340B Rocephin 500mg Injection CPT-01729 IMADM >18YR IM ROUTE 1ST VAC/TOXOID 08/11 SCT-[id number] Medication Reconciliation Inj Order Injection(s) Ordered SCT-[id number] Medication Reconciliation [id number] 340B Rocephin 500mg Injection CPT-56174 IMADM >18YR IM ROUTE 1ST VAC/TOXOID 08/07 CPT-3075F Most recent systolic blood pressure 130-139 mm Hg CPT-3079F Most recent diastoli c blood pressure 80-89 mm Hg SCT-[id number] Medication Reconciliation SCT-475862674 Giving encouragement to exercise [facility] 22215 T1 G.C. Chlamydia [facility] 45451 T2 BV Yeast Trich Culture (Affirm) CPT-26117 Test 47656 CPT-07845 IUD Removal 38392 22734 [facility] Test # Bacterial Vaginosis/Vaginitis Panel CPT-43334 Urine Dip Auto 78286 GC PN Genetic Counseling US Ultrasound with Consult CPT-64500 Urine Culture Vital Signs Date Name Value Unit Description BMI (Body Mass Index) 29.07 kg/m2 Bod y Mass Index (Ratio) Body Temperature 98.1 [degF] temperat ure E&M Body Temperature 36.72 Fabiana temperat ure in centigrade E&M BP Diastolic 80 mm[Hg] blood pressu re, diastolic BP Systolic 118 mm[Hg] blood pressur e, systolic BSA (Body Surface Area) 2.04 b janneth surface area Heart Rate 98 /min pulse rate Height 68 [in_us] height E&M Height 172.72 cm height in cent imeters E&M Weight Measured 86.59 kg weight in kilograms E&M Weight Measured 190.5 [lb_av] weight E& M Weight Measured 190.5 [lb_av] weight E& M Heart Rate 106 /min pulse rate 10 Immunizations No information available. Advance Directives No information available.
--- OUTSIDE RECORDS SUMMARY | 2025-03-09 15:04 | XMS_ITS | Encounter Summary ---
Author Organization [place] [address] Care Team Providers Care Building Construction Professor Name Role Phone Slick Owens MD Primary Care Provider Reason for Visit * Reason Onset Date Comments Other 02/21/2025 NEEDS TO DISCUSS VIVITROL Relaying Information 02/21/2025 injection Encounter Details Date Type Department Care Team (Late st Contact Info) Description 02/21/2025 Telephone SEP Mario [address] [place] [address] Midlred De APRN [address] [place] [address] Other (NEEDS TO DISCUSS VIVITROL); Relaying Information (injection ) Social History Tobacco Use Types Packs/Day [...] Date Recorded PHQ-2 Total Score 0 11/18/2021 [facility] of Occupat ional Health - Occupational Stress [...] Date Author No 11/18/2021 2:29 PM EST Annmarie Leiva documented in this encounter Miscellaneous Notes * Telephone Encounter - Danielle Wilkerson CCMA - 03/06/2025 10:28 AM EDT No answer, mailbox full. [facility] pt. Ok to schedule office visit. * Telephone Encounter - Danielle Wilkerson CCMA - 02/27/2025 11:38 AM EDT Sent to specialty pharmacy. Will call when delivered * Telephone Encounter - Bette Alcazar MA - 02/23/2025 12:29 PM EDT Select the most appropriate reason for this telephone message: Relaying Information Relaying Information Who is Calling: Other Pt's mother What information is the caller relaying:pt's mother stated pt didn't get an injection while at [facility].Pt's mother reports pt is currently taking pills but they are making her stomach upset. Further follow-up needed? Yes Return Method of Communication:Phone call Additional Information:N/A * Telephone Encounter - Danielle Wilkerson CCMA - 02/22/2025 9:54 AM EDT LMTRC * Telephone Encounter - Mildred De APRN - 02/21/2025 4:18 PM EDT Ok to schedule. If she got one in [facility], then will schedule 28 days from injection. If she did not get one, we will need to order one then call her once we get it in. * Telephone Encounter - Bel El CCMA - 02/21/2025 4:02 PM EDT Patients mother is calling wanting to see if patient can get a appointment for the Vivitrol shot. Patient was just released from [facility]. Please call mom back to advise. documented in this encounter Plan of Treatment [...] on filedocumented in this encounter Care Teams Building Construction Professor Relationship Specialty Start Date End Date Slick Owens MD [address] [facility] [address] [address] PCP - General Family Medicine 03/01/24 documented as of this encounter
--- OUTSIDE RECORDS SUMMARY | 2025-03-09 15:04 | XMS_ITS | Encounter Summary ---
Author Organization [facility] [address] Care Team Providers Care Development Officer Name Role Phone Slick Owens MD Primary Care Provider [phone] Reason for Visit * Reason Onset Date Comments Refill 12/25/2024 med refill- aski ng for Trazodone PRIOR to upcoming appt on 12/27- please call mom Encounter Details Date Type Department Care Team (Late st Contact Info) Description 12/25/2024 Telephone SEP Mario [address] [place] [address] Mildred De APRN [address] [place] [address] Refill (med refill- asking for Trazodone PRIOR to upcoming appt on 12/27- please call mom ) Social History Tobacco Use Types Packs/Day Years Used Date Smoking Tobacco: Every Day Cigarettes 1 12.8 Started: 06/07/2012 Smokeless Tobacco: Never Alcohol Use Standard Drinks/Week Comments Not Currently 6 (1 standard drink = 0.6 oz pure alcohol) Mj Arriagatessie Justin - 6 per day. Overall Financial Resource Strain (CARDIA) Answe r Date Recorded How hard is it for you to pa y for the very basics like food, housing, medical care, and heating? Not hard at all 01/07/2021 PHQ-2 Answer Date Recorded PHQ-2 Total Score 0 11/18/2021 [facility] of Occupat ional Health - Occupational Stress [...] Date Author No 11/18/2021 2:29 PM Annmarie eWbster documented in this encounter Miscellaneous Notes * Telephone Encounter - Leatha Castro MA - 12/25/2024 4:43 PM EDT Pt mother aware * Telephone Encounter - Dariusz Arshad MD - 12/25/2024 4:31 PM EDT Done Dariusz Arshad MD * Telephone Encounter - Leatha Castro MA - 12/25/2024 4:06 PM EDT Can you please advise if ok to send in Pt? * Telephone Encounter - SarahalexisCrystal - 12/25/2024 3:45 PM EDT Select the most appropriate reason for this telephone message: Medication Refill Who is requesting the refill: Other mom Medication(s)Name/Dosage/Frequency: Disp Refills Start End traZODone (DESYREL) 50 mg Oral Tablet -- -- 01/05/2023 -- Class: Historical Med Disp Refills Start End traZODone (DESYREL) 50 mg Oral Tablet (Discontinued) 30 Tablet 2 01/05/2023 01/07/2023 Sig - Route: Take 1 Tablet by mouth nightly. - Oral Did patient contact the pharmacy first: No How many days left on hand: 0- pt was admitted at [facility] and according to mom when she was discharged she wasn't given this medication at all. She's been without it for 3 days and not doing good withoutit Future appt date w/ prescribing provider: 12/27 [id number] - [place] [address] - [address] [phone] Return Method of Communication: Phone Call Additional Information: med not pended- listed as historical in chart. Mom says when she left [facility] they didn't give her any of this back. She's not doing too good without it and she's not sure she's going to be able to handle not having this for another few days until she's seen on Wednesday. Please advise if this can be sent back in for her PRIOR to her being seen for the hospital f/u. documented in this encounter Plan of Treatment [...] on filedocumented in this encounter Care Teams Development Officer Relationship Specialty Start Date End Date Slick Owens MD [address] [address] PCP - General Family Medicine 03/01/24 documented as of this encounter
--- OUTSIDE RECORDS SUMMARY | 2025-03-09 15:04 | XMS_ITS | Encounter Summary ---
Author Organization [place] [address] Care Team Providers Care Machine Learning Intern Name Role Phone Slick Owens MD Primary Care Provider [phone] Reason for Visit * Reason Onset Date Comments Symptoms (Only Use If Pt Pus hes Back On Scheduling A Visit) 02/27/2025 Cat bite Follow Up 02/27/2025 Mother calling b ack about this Encounter Details Date Type Department Care Team (Late st Contact Info) Description 02/27/2025 Telephone SEP Mario [address] [place] [address] Mildred De APRN [address] [place] [address] Symptoms (Only Use If Pt Pushes Back On Scheduling A Visit) (Cat bite ); Follow Up (Mother calling back about this ) Social History Tobacco Use Types Packs/Day [...] Date Recorded PHQ-2 Total Score 0 11/18/2021 [facility] of Occupat ional Health - Occupational Stress [...] encounter Miscellaneous Notes * Telephone Encounter - Aldo Andrade MA - 02/27/2025 4:01 PM EDT Images from the original note were not included. Select the most appropriate reason for this telephone message: Follow Up Follow Up Who is Calling:Other - Nazia, mother (on ICF) What is the caller following up on (make sure to reference any prior documentation/encounter): Calling back about this; She wanted to know when last Td was administered. I advised that it was 02/14/2017 per [facility]. I reiterated PATO's recommendations below- needs to get another one, if bite punctured skin. She acknowledged. Further follow-up needed?:No Return Method of Communication:N/A Additional Information:FYI * Telephone Encounter - Girish Ocampo MA - 02/27/2025 1:49 PM EDT Informed * Telephone Encounter - Mildred De APRN - 02/27/2025 1:44 PM EDT If bite punctured the skin, would recommend updated tdap (can go to the health dept or pharmacy) Keep wounds clean and dry Followup for any concerns for infection. * Telephone Encounter - Dianna Frank LPN - 02/27/2025 1:27 PM EDT Select the most appropriate reason for this telephone message: Symptoms Call Who is reporting the symptoms: Other mother What symptom(s) is the patient experiencing: pts mother calling, pt was bit by a cat yesterday. States pt was bit on her knuckle. States the area looks okay, no signs of infection. But seeking adviceif pt needs to do thing How long have symptoms been present: 1 day(s) ago Has the patient been seen for this:No If no, was an appointment/E-Visit offered/suggested? Seeking advice Has the patient tried anything to relieve the symptoms and did it help: Yes soap and water If pain, what level on scale 1-10 (10 being the greatest): No pain Desired Outcome: Advice Pharmacy & Location:[id number] [address] - [address] [phone] [[id number]] Return Method of Communication: Phone Call Was patient transferred to Nurse Triage for additional help? N/A Additional Information: Please advise,thank you documented in this encounter Plan of Treatment [...] on filedocumented in this encounter Care Teams Machine Learning Intern Relationship Specialty Start Date End Date Slick Owens MD [address] [place] [address] PCP - General Family Medicine 03/01/24 documented as of this encounter
--- OUTSIDE RECORDS SUMMARY | 2025-03-09 15:04 | XMS_ITS | Encounter Summary ---
Author Organization [place] Address [facility] [place] [address] Care Team Providers Care Sash Repairer Name Role Phone Destinee Galvez MD Primary Care Provider Unav ailable Cira Mosqueda BS, COS Unavailable Unavail able Destinee Galvez MD Primary Care Provider Unav ailable Brenden Connell DO Primary Care Provider [phone] Slick Owens MD Primary Care Provider [phone] Encounter Details Date Type Department Care Team (Late st Contact Info) Description 08/06/2021 Hospital Encounter [facility] [place] [address] Social History Tobacco Use Types Packs/Day Years [...] Date Recorded PHQ-2 Total Score 0 11/18/2021 [facility] of Occupat ional Health - Occupational Stress [...] as of this encounter Functional Status * Cognitive and Functional Status Question Answer Date of Assessment Author Is the person deaf or does h e/she have serious difficulty hearing? No 11/18/2021 2:29 PM Annmarie Ramos Is the person blind or does he/she have serious difficulty seeing even when wearing glasses? No 11/18/2021 2:29 PM Ti Webster Does this person have seriou s difficulty walking or climbing stairs? No 11/18/2021 2:29 PM Annmarie Webster Does this person have diffic ulty dressing or bathing? No 11/18/2021 2:29 PM Moustapha Webster * Alcohol Screening Score Answer Date of Assessment Author 7 08/24/2022 2:00 AM Stephanie Bey RN * Drug Screening Score Answer Date of Assessment Author 0 10/17/2022 7:41 PM Levi Rosas LCSW * Question Answer Date of Assessment Author How often do you have a drin k containing alcohol? 4 08/24/2022 2:00 AM Stephanie Bey R N How many drinks containing a lcohol do you have on a typical day when you are drinking? 1 08/24/2022 2:00 AM Stephanie Bey R N How often do you have six or more drinks on one occasion? 2 08/24/2022 2:00 AM Kal Bey RN How often during the last ye ar have you found that you were not able to stop drinking once you had started? 0 08/24/2022 2:00 AM Stephanie Zhang RN How often during the last ye ar have you failed to do what was normally expected of you because of drinking? 0 08/24/2022 2:00 AM Stephanie Bey RN How often during the last ye ar have you needed a first drink in the morning to get yourself going after a heavy drinking session? 0 08/24/2022 2:00 AM Reynaldo Bey RN How often during the last ye ar have you had a feeling of guilt or remorse after drinking? 0 08/24/2022 2:00 AM Kal Bey RN How often during the last ye ar have you been unable to remember what happened the night before because of your drinking? 0 08/24/2022 2:00 AM Stephanie Bey R N Have you or someone else bee n injured because of your drinking? 0 08/24/2022 2:00 AM Stephanie Saxena RN Has a relative, friend, doct or, or other health care worker been concerned about your drinking or suggested you cut down? 0 08/24/2022 2:00 AM Kal Bey RN AUDIT-C to Determine Rows 4-10 1 08/24/2022 2:00 AM Stephanie Bey RN * PHQ-9 Total Score Answer Date of Assessment Author 0 11/18/2021 2:29 PM Annmarie Webster * Question Answer Date of Assessment Author Do you ever wish you weren't alive anymore? (Past 1 Month) 0 08/29/2021 4:13 PM Cris Thomason RN Have you thought about doing something to make youself not alive anymore? (Past 1 Month) 0 08/29/2021 4:13 PM Cris Thomason RN * Recent Risk Level: Answer Date of Assessment Author No Risk, Screening Complete 08/29/2021 4:13 PM Cris Garcia RN * Question Answer Date of Assessment Author Little interest or pleasure in doing things 0 11/18/2021 2:29 PM Annmarie Webster Feeling down, depressed, or hopeless 0 11/18/2021 2:29 PM Annmarie Webster PHQ-2 Total Score 0 11/18/2021 2:29 PM Annmarie Webster * Suicide Severity Rating Answer Date of Assessment Author No Risk 02/07/2023 12:58 PM EDT Dominique Castro RN * [place] Suicide Severity Rating Scale (Q shift for moderate and high) Question Answer Date of Assessment Author 1. In the past month, have you wished you were or wished you could go to sleep and not wake up? 0 02/07/2023 12:58 PM EDT Avis Larose RN 2. In the past month, have you actually had any thoughts of killing yourself? (If no, skip to question 6) 0 02/07/2023 12:58 PM EDAvis Garcia RN 3. In the past month, have you been thinking about how you might do this? 0 10/18/2022 1:40 AM Priya Rubin RN 4. In the past month, have you had these thoughts and had some intention of acting on them? 0 10/18/2022 1:40 AM Priya Rubin RN 5. In the past month, have you started to work out or worked out the details of how to kill yourself? 0 10/18/2022 1:40 AM Priya Rubin RN 6. Have you ever done anything, started to do anything, or prepared to do anything to end your life? 0 02/07/2023 12:58 PM EDT Dominique Mcdaniels RN documented as of this encounter Mental Status * Cognitive and Functional Status Question Answer Entry Date Author Because of a physical, menta l or emotional condition, does this person have difficulty doing errands alone such as visiting a doctor's office or shopping? No 11/18/2021 2:29 PM Annmarie Hanks Because of a physical, menta l or emotional condition, does this person have serious difficulty concentrating, remembering or making decisions? No 11/18/2021 2:29 PM EST Annmarie Leiva documented in this encounter Plan of Treatment [...] on filedocumented in this encounter Care Teams Sash Repairer Relationship Specialty Start Date End Date Destinee Galvez MD PCP - General Family Medicine 12/19/12 04/09/22 Destinee Galvez MD PCP - General Family Medicine 08/24/22 08/30/22 Brenden Connell DO [address] [place] [address] PCP - General Family Medicine 10/17/22 01/07/23 Slick Owens MD [address] [address] PCP - General Family Medicine 03/01/24 Cira Mosqueda BS, COS Case Party Plan Sales Consultant 10/08/21 01/19/22 documented as of this encounter
[2025-03-09 15:16] VITALS: BP 103/68; PULSE 78; RESP 20; TEMP 36.4; O2SAT 100
[2025-03-09] MEDS: RABIES VACCINE (PCEC)/PF 2.5 UNIT VIAL IM (15:16)
== END 2025-03-09 15:28 | disposition home or self-care (01) ==
LOC: INF 15:02
PROVIDERS: PCP Nurse Practitioner; Visit Provider Emergency Medicine
DX: S61.452A Open bite of left hand, initial encounter (principal); Z23 Encounter for immunization
CPT/HCPCS: 90675; 96372

== ENCOUNTER 2025-03-16 14:39 | Outpatient (CLI) | payer OTHER, SELFPAY ==
--- OUTSIDE RECORDS SUMMARY | 2023-04-22 15:45 | XMS_ITS | Encounter Summary ---
Author Organization [place] [address] Care Team Providers Care Uke Operator Name Role Phone Unavailable Primary Care Provider Unavailabl e Encounter Details Date Type Department Care Team (Latest Contact Info) Description 04/22/2023 3:45 PM EDT Hospital Encounter [facility] [address] [place] [address] Left without seen Social History Tobacco Use Types Packs/Day Years Used Date Smoking Tobacco: Every Day Cigarettes 1 12.8 Started: 06/07/2012 Smokeless Tobacco: Never Alcohol Use Standard Drinks/Week Comments Not Currently 6 (1 standard drink = 0.6 oz pure alcohol) Mj Anderson - 6 per day. Overall Financial Resource Strain ([facility]) Answe r Date Recorded How hard is it for you to pa y for the very basics like food, housing, medical care, and heating? Not hard at all 01/07/2021 PHQ-2 Answer Date Recorded PHQ-2 Total Score 0 11/18/2021 [facility] of Occupat ional Health - Occupational Stress [...]
--- OUTSIDE RECORDS SUMMARY | 2025-03-16 14:42 | XMS_ITS | Encounter Summary ---
Author Organization [place] [address] Care Team Providers Care Tanker Driver Name Role Phone Slick Owens MD Primary Care Provider [phone] Reason for Visit * Reason Onset Date Comments Other 02/28/2025 Question on rabi es vaccine Patient Returning Call 02/28/2025 Vaccine Encounter Details Date Type Department Care Team (Late st Contact Info) Description 02/28/2025 Telephone SEP Mario [address] [place] [address] Mildred De APRN [address] [place] [address] Other (Question on rabies vaccine ); [...] Date Recorded PHQ-2 Total Score 0 11/18/2021 [facility] of Occupat ional Health - Occupational Stress [...] has additional questions: Mother stated that the heavy duty custodian of the cat was going to send recordspf vaccine to PCP and she wants to know if she got them Further follow-up needed? yes Return Method of Communication: Phone Call Additional Information: Mother stated that she gave the heavy duty custodian of the cat information on where it [...] on filedocumented in this encounter Care Teams Tanker Driver Relationship Specialty Start Date End Date Slick Owens MD [address] [facility] [place] [address] PCP - General Family Medicine 03/01/24 documented as of this encounter
--- OUTSIDE RECORDS SUMMARY | 2025-03-16 14:42 | XMS_ITS | Clinical Summary ---
Author Organization [facility] Medical Address [address] [place] [address] Phone Care Team Providers Care University Professor Name Role Phone Joe Viola WHYTE Primary Care Physician [phone] Conditions or Problems Problem Name Problem Code Onset Date Status Entry Date Provider Comment Standard Description Annotate Body mass index (BMI) 29.0-29.9; adult Z68.29 (ICD-10-CM ) 10/24 Active 10/24 Amber Conde APRN Body mass index [BMI] 29.0-29.9, adult Body mass index (BMI) 28.0-28.9; adult Z68.28 (ICD-10-CM ) 11/22 Correction 11/22 Amber Conde APRN Body mass index [BMI] 28.0-28.9, adult Sinusitis-[place] 93526070 (SNOMED CT) 10/24 Inactive 10/24 Amber Conde APRN Acute sinusitis Sore throat 765043643 (SNOMED CT) 10/24 Inactive 10/24 Amber Conde APRN Pain in throat Sinusitis-[place] 97328894 (SNOMED CT) 10/24 Inactive 10/24 Amber Conde APRN Acute sinusitis Body mass index (BMI) 28.0-28.9; adult Z68.28 (ICD-10-CM ) 11/22 Removed 11/22 Yohana Salas APRN Body mass index [BMI] 28.0-28.9, adult [facility] Lack of physical exercise Z72.3 (ICD-10-CM ) 11/22 Active 11/22 Yohana Lennyert LINE TESTER Lack of physical exercise [facility] Financial insecurity Z59.86 (ICD-10-CM ) 11/22 Active 11/22 Yohana Eppert LINE TESTER Financial insecurity [facility] Transportati on insecurity Z59.82 (ICD-10-CM ) 11/22 Active 11/22 Yohana Galvezert LINE TESTER Transportation insecurity [facility] Lack of adequate food Z59.48 (ICD-10-CM ) 11/22 Active 11/22 Yohana Eppert LINE TESTER Other specified lack of adequate food Screening for 352486713 (SNOMED CT) 11/22 Active 11/22 Yohana Salas APRN Procedure carried out on subject Body mass index (BMI) 25.0-25.9; adult Z68.25 (ICD-10-CM ) 10/11 Correction 10/11 Yohana Salas APRN Body mass index [BMI] 25.0-25.9, adult Std screening 341360320 (SNOMED CT) 11/22 Active 11/22 Yohana Salas APRN Venereal disease screening Screening for chlamydia 843653690 (SNOMED CT) 10/11 Active 10/11 Usama Hills MD Procedure carried out on subject Screening Pap smear exam for cervical cancer 215738014 (SNOMED CT) 10/11 Active 10/11 Usama Hills MD Procedure carried out on subject Body mass index (BMI) 25.0-25.9; adult Z68.25 (ICD-10-CM ) 10/11 Removed 10/11 Usama Hills MD Body mass index [BMI] 25.0-25.9, adult Body mass index (BMI) 26.0-26.9; adult Z68.26 (ICD-10-CM ) 10/07 Correction 10/07 Usama Hills MD Body mass index [BMI] 26.0-26.9, adult Urinary tract infection 91430920 (SNOMED CT) 10/11 Active 10/11 Usama Hills MD Urinary tract infectious disease Pelvic inflammatory disease, acute 107331342 (SNOMED CT) 10/11 Active 10/11 Usama Hills MD Acute pelvic inflammatory disease Body mass index (BMI) 26.0-26.9; adult Z68.26 (ICD-10-CM ) 10/07 Removed 10/07 Della Barragan RN Body mass index [BMI] 26.0-26.9, adult Bacterial vaginosis 449485359 (SNOMED CT) 10/07 Active 10/07 Della Barragan RN Bacterial vaginosis Gonorrhea, acute 66476997 (SNOMED CT) 10/07 Active 10/07 Della Barragan RN Gonorrhea Acute cystitis 90831216 (SNOMED CT) Active Chastity Weinstein LINE TESTER Acute cystitis GENERAL COUNSELING PRESCRIPTION ORAL CONTRACEPTS Z30.011 (ICD-10-CM ) 06/12 Active 06/12 Thelma Greenfield CNM Encounter for initial prescription of contraceptive pills INTRAUTERINE CONTRACEPTIV E DEVICE REMOVAL 06103296 (SNOMED CT) 06/12 Active 06/12 Kristine Whitley MA Removal of intrauterine device ANXIETY DISORDER, SITUATIONAL, MILD 360374506 (SNOMED CT) 02/21 Active 02/21 Dax Escobedo Anxiety disorder VULVOVAGINIT IS 42729267 (SNOMED CT) 02/21 Inactive 02/21 Dax Escobedo [...] hours for pain/fever Take with food ibuprofen 67090528078 Amber Conde APRN Astepro Allergy 205.5 mcg (0.15 %) spray,non-aerosol [place] 1 spray into both nostrils twice a day azelastine 52585263878 Amber Conde APRN MUCINEX MAXIMUM STRENGTH 1200 MG [id number] Take 1 tablet by mouth every twelve hours NEEDED FOR CONGESTION. TAKE WITH 8OZ OF WATER. guaifenesin 31781545810 Amber Conde APRN ZITHROMAX Z-CECIL 250 MG TABS Take 2 tablet by mouth once a day as directed for 1 days, then take 1 tablet by mouth once a day as directed for 4 days azithromycin 68862922869 Amber Conde APRN VENTOLIN HFA 108 (90 Base) MCG/ACT AERS Inhale 2 puff using inhaler every four to six hours as directed NEEDED FOR WHEEZING AND FOR SHORTNESS OF BREATH albuterol sulfate 75593656927 Amber Conde APRN METRONIDAZOLE 0.75 % GEL Insert 1 applicatorful into vagina once a day for 5 days 10/11 metronidazole 30402957433 Usama Hills MD CEPHALEXIN 500 MG CAPS Take 1 capsule by mouth four times a day 10/16 cephalexin 62978340208 Usama Hills MD METRONIDAZOLE 500 MG TABS Take 1 tablet by mouth twice a day 10/21 metronidazole 42379521003 Usama Hills MD ZITHROMAX 250 MG TABS Take 1 tablet by mouth once a day 10/21 azithromycin 29468592667 Usama Hills MD METRONIDAZOLE 0.75 % GEL Insert 1 applicatorful into vagina once a day for 5 days metronidazole 72538672206 Belén Rucker APRN MACROBID 100 MG CAPS Take 1 capsule by mouth twice a day for 5 days 10/07 nitrofurantoin monohyd/m-cryst 89895502197 Hyacinth Tellez MA DIFLUCAN 150 MG TABS Take 1 tablet by mouth single dose May repeat in 7 days /04 fluconazole 89322479999 Hyacinth Christian Rosalinda BROWN MACROBID 100 MG CAPS Take 1 capsule by mouth twice a day for 5 days nitrofurantoin monohyd/m-cryst 56079246912 Chastity Weinstein APRN DIFLUCAN 150 MG TABS Take 1 tablet by mouth single dose May repeat in 7 days fluconazole 11653905051 Chastity Weinstein LINE TESTER TRI-SPRINTEC 0.18/0.215/0.25 MG-35 MCG TABS 1 daily 06/12 NORGESTIM-ETH ESTRAD TRIPHASIC 03851055338 Thelma Greenfield CNM MIRENA (52 MG) 20 MCG/24HR INTRAUTERINE INTRAUTERINE DEVICE 1 DEVICE 06/12 LEVONORGESTREL 23661573912 Thelma Greenfield CNM MIRENA (52 MG) 20 MCG/24HR INTRAUTERINE INTRAUTERINE DEVICE 1 DEVICE LEVONORGESTREL 59419693479 Dax Escobedo NITROFURANTOIN MACROCRYSTAL 100 MG CAPS Take 1 capsule by mouth every 12 hours for seven days to treat urinary tract infection 02/21 NITROFURANTOIN MACROCRYSTAL 12565093760 Kristine Whitley MA NITROFURANTOIN MACROCRYSTAL 100 MG CAPS Take 1 capsule by mouth every 12 hours for seven days to treat urinary tract infection NITROFURANTOIN MACROCRYSTAL 07348687692 Usama Hills MD Medications Administered No information [...] Office Visit: sinusitis LABS ORDERED Strep Screen 20225 Laboratory tests ordered RAPID STREP negative Streptoc [...] Procedures Code Procedure Name Date Entry Date [facility]-[id number] Medication Reconciliation CPT-3074F Most recent systolic blood pressure <130 mm Hg CPT-3079F Most recent diastoli c blood pressure 80-89 mm Hg CPT-1159F Medication list docu mented in medical record CPT-1160F Review of all medica tions by a prescribing practitioner SCT-[id number] Giving encouragement to exercise SCT-7874566 Former smoker CPT-1159F Medication list docu mented in medical record [facility]-[id number] Medication Reconciliation CPT-3074F Most recent systolic blood pressure <130 mm Hg CPT-3079F Most recent diastoli c blood pressure 80-89 mm Hg CPT-1160F Review of all medica tions by a prescribing practitioner [facility] 49841 T2 BV Yeast Trich Culture (Affirm) 11/22 [facility] 46404 T1 G.C. Chlamydia Inj Order Injection(s) Ordered CPT-24493 Urine Dip Auto 69477 CPT-36041 Test 81312 [facility] 02782 T1 ThinPrep w HR HPV /GC/Chlamydia mRNA E6/E7 [facility] 24096 T2 BV Yeast Trich Culture (Affirm) 10/11 CPT-3074F Most recent systolic blood pressure <130 mm Hg CPT-3079F Most recent diastoli c blood pressure 80-89 mm Hg CPT-1159F Medication list docu mented in medical record [id number] 340B Rocephin 500mg Injection CPT-84484 IMADM >18YR IM ROUTE 1ST VAC/TOXOID 08/11 SCT-[id number] Medication Reconciliation Inj Order Injection(s) Ordered SCT-[id number] Medication Reconciliation [id number] 340B Rocephin 500mg Injection CPT-90208 IMADM >18YR IM ROUTE 1ST VAC/TOXOID 08/07 CPT-3075F Most recent systolic blood pressure 130-139 mm Hg CPT-3079F Most recent diastoli c blood pressure 80-89 mm Hg SCT-[id number] Medication Reconciliation SCT-606923402 Giving encouragement to exercise Quest 65996 T1 G.C. Chlamydia Quest 27377 T2 BV Yeast Trich Culture (Affirm) CPT-81403 Test 71085 CPT-40675 IUD Removal 35754 09092 [facility] Test # Bacterial Vaginosis/Vaginitis Panel CPT-57109 Urine Dip Auto 61726 GC PN Genetic Counseling US Ultrasound with Consult CPT-61600 Urine Culture Vital Signs Date Name Value [...]
--- OUTSIDE RECORDS SUMMARY | 2025-03-16 14:42 | XMS_ITS | Encounter Summary ---
Author Organization [place] [address] Care Team Providers Care Assistant Strength Coach Name Role Phone Slick Owens MD Primary Care Provider [phone] Reason for Visit * Reason Onset Date Comments Refill 12/25/2024 med refill- aski ng for Trazodone PRIOR to upcoming appt on 12/27- please call mom Encounter Details Date Type Department Care Team (Late st Contact Info) Description 12/25/2024 Telephone SEP Mario [address] [place] [address] Mildred De APRN [address] [place] [address] Refill (med refill- asking for Trazodone [...] Date Recorded PHQ-2 Total Score 0 11/18/2021 [facility] [place] of Occupat ional Health - Occupational Stress [...] on hand: 0- pt was admitted at [facility] and according to mom when she was discharged she wasn't given this medication at all. She's been without it for 3 days and not doing good withoutit Future appt date w/ prescribing provider: 12/27 [id number] [place] [address] - [address] [phone] Return Method of Communication: Phone Call Additional [...] on filedocumented in this encounter Care Teams Assistant Strength Coach Relationship Specialty Start Date End Date Slick Owens MD [address] [address] PCP - General Family Medicine 03/01/24 documented as of this encounter
--- OUTSIDE RECORDS SUMMARY | 2025-03-16 14:42 | XMS_ITS | Encounter Summary ---
Author Organization [place] [address] Care Team Providers Care Physician Representative Name Role Phone Slick Owens MD Primary Care Provider [phone] Encounter Details Date Type Department Care Team (Latest Contact Info) Description 02/13/2025 External Contact [facility] [address] [place] [address] Ryanne Lucio, DOCUMENT SCANNER [address] [place] [address] Medical clearance for psychiatric admission (Primary [...] Date Recorded PHQ-2 Total Score 0 11/18/2021 [facility] [place] of Occupat ional Health - Occupational Stress [...] her. She was in a rehabilitation in [place], [place] and got out 03/2024. She was just here at [facility] back in 12/2024for detox and [...] all into my house. I hired a cotton roll packer when she was 19 YO to get [...] drinking like 8 beers a day until, [facility] for 8 days in 2022 detox from ETOH, and was here in 12/2024 for ETOH/Meth detox/rehab. I did a home drug test on 01/08/2025 Barbiturates', benzo, suboxone, methadone, methamphetamines, PCP, LSD. History of Present Illness: Yulyia Ortiz is a 35 y.o. female seen today for medical clearance for admission to [facility]. The patient presents as a walk-in [...] (HCC) - Risk and recommended cessation. - [facility] protocol in place. - Plan per [...] Tobacco abuse -Cessation product offered. -Continue to port gamble patient on the risks associated with tobacco use and urge cessation. Consults/Follow-ups: PCP I conclude that this patient is medically stable for inpatient psychiatric care.: Yes Documentation was completed in both [facility] and also in the additional EMR system used at [facility]. Electronically Signed: Ryanne Lucio APRN 02/13/2025 3:14 [...] disorder documented in this encounter Care Teams Physician Representative Relationship Specialty Start Date End Date Slick Owens MD [address] [address] PCP - General Family Medicine 03/01/24 documented as of this encounter
--- OUTSIDE RECORDS SUMMARY | 2025-03-16 14:42 | XMS_ITS | Encounter Summary ---
Author Organization [place] [address] Care Team Providers Care Whipped Topping Supervisor Name Role Phone Slick Owens MD Primary Care Provider [phone] Reason for Visit * Reason Onset Date Comments Medication Management 12/28/2024 Decrease d ose on prozac, add buspar to daily medication regimen, and mom wants to talk to nurse at office regarding labs for 12/27/24 Encounter Details Date Type Department Care Team (Late st Contact Info) Description 12/28/2024 Telephone [facility] [address] [place] [address] Mildred De APRN [address] [place] [address] Medication Management (Decrease dose on prozac, [...] Date Recorded PHQ-2 Total Score 0 11/18/2021 [facility] - Occupational Stress Questionnaire Answer [...] 12/27/24 last seen by PATO De Pharmacy: [id number] - [place] [phone] - [address] - [phone] Return Method of Communication: Phone Call Additional [...] on filedocumented in this encounter Care Teams Whipped Topping Supervisor Relationship Specialty Start Date End Date Slick Owens MD [address] [facility] [place] [address] PCP - General Family Medicine 03/01/24 documented as of this encounter
--- OUTSIDE RECORDS SUMMARY | 2025-03-16 14:42 | XMS_ITS | Encounter Summary ---
Author Organization [place] [address] Care Team Providers Care Medical Center Director Name Role Phone Slick Owens MD Primary Care Provider [phone] Encounter Details Date Type Department Care Team (Late st Contact Info) Description 02/27/2025 Orders Only SEP Mario [address] [place] [address] Danielle Wilkerson, [facility] Social History Tobacco Use Types Packs/Day [...] Date Recorded PHQ-2 Total Score 0 11/18/2021 [facility] [place] of Occupat ional Health - Occupational Stress [...] of Assessment Author No 11/18/2021 2:29 PM Annamrie Webster Does this person have serious difficulty [...] on filedocumented in this encounter Care Teams Medical Center Director Relationship Specialty Start Date End Date Slick Owens MD [address] [facility] [address] [place] [id number] PCP - General Family Medicine 03/01/24 documented as of this encounter
--- OUTSIDE RECORDS SUMMARY | 2025-03-16 14:42 | XMS_ITS | Encounter Summary ---
Author Organization [place] [address] Care Team Providers Care Horticulture/Floriculture Teacher Name Role Phone Slick Owens MD Primary Care Provider Reason for Visit * Reason Onset Date Comments Medication Refill 01/27/2025 Encounter Details Date Type Department Care Team (Late st Contact Info) Description 01/27/2025 Refill SEP [facility] [address] [place] [id number] Mildred De, SHOP AND ALTERATION TAILOR [address] [place] [address] Medication Refill Social History Tobacco Use [...] Date Recorded PHQ-2 Total Score 0 11/18/2021 [facility] [place] of Occupat ional Health - Occupational Stress [...] documented as of this encounter Care Teams Horticulture/Floriculture Teacher Relationship Specialty Start Date End Date Slick Owens MD [address] [facility] [place] [address] PCP - General Family Medicine 03/01/24 documented as of this encounter
--- OUTSIDE RECORDS SUMMARY | 2025-03-16 14:42 | XMS_ITS | Encounter Summary ---
Author Organization [place] [address] Care Team Providers Care Media Marketing Director Name Role Phone Slick Owens MD Primary Care Provider [phone] Encounter Details Date Type Department Care Team (Latest Contact Info) Description 02/18/2025 External Contact [facility] [address] [place] [address] [place] [address] Salima Baez MD [address] [place] [address] Constipation, unspecified constipation type (Primary Dx); Dermatitis; [...] Date Recorded PHQ-2 Total Score 0 11/18/2021 [facility] [place] of Occupat ional Health - Occupational Stress [...] TNP 02/14/2025 03:11 PM Specimen Status Report [facility] 02/14/2025 03:11 PM MCV 99 fL 02/14/2025 03:11 PM Neutrophils 54 % 02/14/2025 03:11 PM Hemoglobin A1c 5.2 % 02/14/2025 03:11 PM RDW 12.1 % 02/14/2025 03:11 PM MCHC 32.4 g/dL 02/14/2025 03:11 PM MCH 32.0 pg 02/14/2025 03:11 PM [facility] 02/14/2025 03:11 PM Immature Grans (Abs) 0.0 [...] Use Disorder: -Declines tobacco/nicotine cessation. -Continue to tanacross patient on the risks associated with tobacco/nicotine [...] organs documented in this encounter Care Teams Media Marketing Director Relationship Specialty Start Date End Date Slick Owens MD [address] [facility] [place] [address] PCP - General Family Medicine 03/01/24 documented as of this encounter
--- OUTSIDE RECORDS SUMMARY | 2025-03-16 14:42 | XMS_ITS | Encounter Summary ---
Author Organization [place] [address] Care Team Providers Care Ship'S Pilot Name Role Phone Slick Owens MD Primary Care Provider [phone] Reason for Visit * Reason Onset Date Comments Symptoms (Only Use If Pt Pus hes Back On Scheduling A Visit) 02/27/2025 Cat bite Follow Up 02/27/2025 Mother calling b ack about this Encounter Details Date Type Department Care Team (Late st Contact Info) Description 02/27/2025 Telephone [facility] [address] [place] [address] Mildred De APRN [address] [place] [address] Symptoms (Only Use If Pt Pushes [...] Date Recorded PHQ-2 Total Score 0 11/18/2021 [facility] [place] of Occupat ional Health - Occupational Stress [...] I advised that it was 02/14/2017 per [facility]. I reiterated PATO's recommendations below- needs to [...] No pain Desired Outcome: Advice Pharmacy & Location:[id number] [place] [address] - [address] [phone] [[id number]] Return Method of Communication: Phone Call Was [...] on filedocumented in this encounter Care Teams Ship'S Pilot Relationship Specialty Start Date End Date Slick Owens MD [address] [place] [address] PCP - General Family Medicine 03/01/24 documented as of this encounter
--- OUTSIDE RECORDS SUMMARY | 2025-03-16 14:42 | XMS_ITS | Encounter Summary ---
Author Organization [place] [address] Care Team Providers Care Radiology Receptionist Name Role Phone Slick Owens MD Primary Care Provider [phone] Reason for Visit * Reason Onset Date Comments Other 02/21/2025 NEEDS TO DISCUSS VIVITROL Relaying Information 02/21/2025 injection Encounter Details Date Type Department Care Team (Late st Contact Info) Description 02/21/2025 Telephone [facility] [address] [place] [address] Mildred De APRN [address] [place] [address] Other (NEEDS TO DISCUSS VIVITROL); Relaying [...] Date Recorded PHQ-2 Total Score 0 11/18/2021 [facility] [place] of Occupat ional Health - Occupational Stress [...] No answer, mailbox full. [facility]. Ok to [...] Vivitrol shot. Patient was just released from [facility]. Please call mom back to advise. documented [...] on filedocumented in this encounter Care Teams Radiology Receptionist Relationship Specialty Start Date End Date Slick Owens MD [address] [facility] [address] [address] PCP - General Family Medicine 03/01/24 documented as of this encounter
--- OUTSIDE RECORDS SUMMARY | 2025-03-16 14:43 | XMS_ITS | Encounter Summary ---
Author Organization [place] Address [facility] [place] [address] Care Team Providers Care Senior C Developer Name Role Phone Destinee Galvez MD Primary Care Provider Unav ailable Cira Mosqueda BS, COS Unavailable Unavail able Destinee Galvez MD Primary Care Provider Unav ailable Brenden Connell DO Primary Care Provider [phone] Slick Owens MD Primary Care Provider [phone] Encounter Details Date Type Department Care Team (Late st Contact Info) Description 08/06/2021 Hospital Encounter [facility] [place] [address] Social History Tobacco Use [...] Recorded PHQ-2 Total Score 0 11/18/2021 [facility] [place] of Occupat ional Health - Occupational Stress [...] 12:58 PM EDT Dominique Castro RN * [place] Suicide Severity Rating Scale (Q shift for [...] on filedocumented in this encounter Care Teams Senior C Developer Relationship Specialty Start Date End Date Destinee Galvez MD PCP - General Family Medicine 12/19/12 04/09/22 Destinee Galvez MD PCP - General Family Medicine 08/24/22 08/30/22 Brenden Connell DO [address] [place] [address] PCP - General Family Medicine 10/17/22 01/07/23 Slick Owens MD [address] [address] PCP - General Family Medicine 03/01/24 Cira Mosqueda BS, COS [employer] Worker 10/08/21 01/19/22 documented as of this encounter
--- OUTSIDE RECORDS SUMMARY | 2025-03-16 14:43 | XMS_ITS | Clinical Summary ---
Author Organization [facility] Address [address] [place] [address] Phone Care Team Providers Care Person Investigator Name Role Phone Slick Owens MD Primary Care Provider [phone] Allergies No known active allergies Medications * [...] Mailed tls Last Miguel as expected 01/31/21 [id number] 02/25/2022 No Show Galvez - second letter [...] 01/05/2023 Hx of pancreatitis 01/05/2023 Overview (12/10/2023): Hollis to be related to alcohol intake No [...] with her. I told her to take [id number]-bmqunnt Zyrtec or Claritin in addition to taking [...] assessed and discussed today [facility] alcohol-induced disorder 01/05/2023 12/27/2024 [...] Team Description 02/28/2025 Telephone SEP Mario [address] [place], [place] [id number] Mildred De APRN Other (Question on rabies vaccine ); Patient Returning Call (Vaccine ) 02/27/[address] [place] [address] Lobo CanyonLocMildred, CUSTOM SHOE DESIGNER AND MAKER Symptoms (Only Use If Pt Pushes Back On Scheduling A Visit) (Cat bite ); Follow Up (Mother calling back about this ) 02/27/2025 Orders Only [address] [place] [address] [facility] 02/21/[address] [place] [address] Mildred De, CUSTOM SHOE DESIGNER AND MAKER Other (NEEDS TO DISCUSS VIVITROL); Relaying Information (injection ) 02/18/2025 External Contact [facility] [place] [address] Salima Baez MD Constipation, unspecified constipation type (Primary Dx); Dermatitis; Abrasions of multiple sites; Hypoglycemia; Hypertriglyceridemia ; Macrocytosis; Overweight (BMI 25.0-29.9); Nicotine use disorder; Screening for STDs (sexually transmitted diseases); Vaginal itching 02/13/2025 External Contact [facility] [place] [address] Ryanne Lucio APRN Medical clearance for psychiatric admission (Primary Dx); Alcohol use disorder, severe, dependence (HCC); Marijuana dependence (HCC); Screening for STDs (sexually transmitted diseases); Vaginal itching; Abrasions of multiple sites; Ecchymosis; Overweight (BMI 25.0-29.9); Tobacco abuse 01/27/[address] [place] [address] Mildred De, CUSTOM SHOE DESIGNER AND MAKER Medication Refill 01/09/2025 6:15 PM EDT Office Visit [address] [address] Destinee Madison PA-C Facial swelling (Primary Dx) 12/28/[address] [place] [address] Mildred De APRN Medication Management (Decrease dose on prozac, add buspar to daily medication regimen, and mom wants to talk to nurse at office regarding labs for 12/27/24) 12/27/2024 3:00 PM EDT Office Visit [address] [place] [address] Mildred De APRN Annual physical exam (Primary Dx); Intellectual disability; History of alcohol abuse; Insomnia, persistent; Contraceptive education; Screen for STD (sexually transmitted disease); Screening for thyroid disorder; Mouth sores; Thrush; Vapes nicotine containing substance 12/27/2024 Travel 12/25/2024 Orders Only [address] [place] [address] Dariusz Arshad MD 12/25/[address] [place] [address] Mildred De APRN Refill (med refill- asking for Trazodone PRIOR to upcoming appt on 12/27- please call mom ) 12/24/2024 4:15 PM EDT Office Visit [address] [address] Hannah Hopkins APRN Thrush (Primary Dx) 12/23/2024 Travel 12/19/2024 External Contact [facility] [place] [address] Ryanne Lucio APRN Iron deficiency anemia, unspecified iron deficiency anemia type (Primary Dx); Overweight (BMI 25.0-29.9); Ecchymosis 12/15/2024 External Contact [facility] [place] [address] Leeanne Bond APRN Medical clearance for [...] Date Recorded PHQ-2 Total Score 0 11/18/2021 [facility] [place] of Occupat ional Health - Occupational Stress [...] 12/27/2024 3:32 PM EDT Annual physical exam WRAPPING CHECKER CYTOLOGY REQUEST (PAP ONLY) Routine 11/18/2021 2:49 PM EST Well woman exam with routine gynecological exam from Last 3 Months or Most Recently Relevant to Health Maintenance Results * HIV AG/AB (12/27/2024 3:32 PM EDT) [facility] HIV Ag/AB Non-Reacti ve Non-Reacti ve 12/27/2024 7:55 PM EDT [facility] [employer] Comment:Negative for HIV-1 a ntigen and anti-HIV-1/anti-HIV-2 antibodies. Blood VENOUS BLOOD / Unknown Venipuncture / Unknown 12/27/2024 3:32 PM EDT 12/27/2024 3:32 PM EDT Narrative [facility] [employer] - 12/27/2024 7:55 PM EDT Test performed using Elz[employer]ys electrochemiluminescence immunassay (ECLIA). [facility] IMMUNOLOGY ORDERABLES Final Result [employer] [address] [facility] , [address] [place] [id number] * SYPHILIS SCREEN WITH REFLEX RPR QUANT (12/27/2024 3:32 PM EDT) [facility] Trep Ab Index 0.10 <=0.99 Index Value 12/27/2024 8:30 PM EDT [employer] Comment: < 1.00 - Non-Reactive >=1.00 - Reactive NOTE: All reactive results will be reflexed to Quantitative Non-Treponemal(RPR)test. Blood VENOUS BLOOD / Unknown Venipuncture / Unknown 12/27/2024 3:32 PM EDT 12/27/2024 3:32 PM EDT Mildred LongYing Investment ManagementN CHEMISTRY ORDERABLES Final Result [facility] [employer] [address] [facility] , [place] [address] * VITAMIN B12/ FOLIC ACID (12/27/2024 3:32 PM EDT) Vitamin B12 446 232 - 1,245 pg/mL 12/27/2024 7:55 PM EDT [facility] [employer] [facility] Folate 12.30 >=4.80 ng/mL 12/27/2024 7:55 PM EDT [facility] [employer] Blood VENOUS BLOOD / Unknown Venipuncture / Unknown 12/27/2024 3:32 PM EDT 12/27/2024 3:32 PM EDT Narrative [facility] [employer] - 12/27/2024 7:55 PM EDT Ingestion of byron doses of biotin (>5 mg/day) taken within 8 hours of drawing blood sample can interfere with this immunoassay test. [employer] CHEMISTRY ORDERABLES Final Result Performing Organization Address [facility]/ZIP Co de Phone Number [facility] [employer] [address] [facility] , [place] [address] * TSH REFLEX TO FT4 (12/27/2024 3:32 PM EDT) TSH Reflex 0.815 0.270 - 4.200 mcIU/mL 12/27/2024 7:26 PM EDT [facility] [employer] Blood VENOUS BLOOD / Unknown Venipuncture / Unknown 12/27/2024 3:32 PM EDT 12/27/2024 3:32 PM EDT Narrative [employer] - 12/27/2024 7:26 PM EDT Ingestion of byron doses of biotin (>5 mg/day) taken within 8 hours of drawing blood sample can interfere with this immunoassay test. [employer] CUSTOM SHOE DESIGNER AND MAKER CHEMISTRY ORDERABLES Final Result Performing Organization Address City/[facility]/ZIP Co de Phone Number [facility] [employer] [address] [facility] , [place] [address] * (ABNORMAL) VITAMIN D 25 HYDROXY (12/27/2024 3:32 PM EDT) Vit D 25 OH 29.3(L) 30.0 - 150.0 ng/mL 12/27/2024 7:55 PM EDT [facility] [employer] Comment: Preferred: >= 30 ng/mL Insufficient: 21-29 ng/mL Deficient <= 20 ng/mL Possible Toxicity: >150 ng/mL Samples should not be taken from patients receiving therapy with high biotin doses (i.e. > 5 mg/day) until at least 8 hours following the last biotin administration. Blood VENOUS BLOOD / Unknown Venipuncture / Unknown 12/27/2024 3:32 PM EDT 12/27/2024 3:32 PM EDT Mildred De CUSTOM SHOE DESIGNER AND MAKER CHEMISTRY ORDERABLES Final Result [facility], [facility] [address] [facility] , [place] [address] * ACUTE HEPATITIS PANEL (12/27/2024 3:32 PM EDT) Pathologist [facility] Hep Bs Ag Non-Reacti ve Non-React avinash 12/27/2024 7:33 PM EDT [facility] [employer] Comment:HBsAg not detected. Does not exclude possibility of exposure to HBV. Hep B Core IgM Non-Reacti ve Non-React avinash 12/27/2024 7:33 PM EDT [facility], [facility] Hep A IgM Non-Reacti ve Non-React avinash 12/27/2024 7:33 PM EDT [facility] [employer] [employer] Hep C Ab Non-Reacti ve Non-React avinash 12/27/2024 7:33 PM EDT [facility] [employer] [employer] Comment:No antibodies to HCV detected. Does not exclude possibility of exposure to HCV. Blood VENOUS BLOOD / Unknown Venipuncture / Unknown 12/27/2024 3:32 PM EDT 12/27/2024 3:32 PM EDT Narrative [facility] [employer], [facility] - 12/27/2024 7:33 PM EDT Test performed using Elzbieta Elecsys electrochemiluminescence immunassay (ECLIA). Mildred Kenisha WHYTE CHEMISTRY ORDERABLES Final Result [facility] [address] [facility] , [place] [address] * (ABNORMAL) CBC WITH DIFF (12/27/2024 3:32 PM EDT) Pathologist [facility] WBC 7.4 3.7 - 10.3 x10(3)/mcL 12/27/2024 7:01 PM EDT [facility] RBC 4.39 3.90 - 5.20 x10(6)/mcL 12/27/2024 7:01 PM EDT [facility] Hgb 13.9 11.2 - 15.7 g/dL 12/27/2024 7:01 PM EDT [facility] Hct 42.2 34.0 - 45.0 % 12/27/2024 7:01 PM EDT [facility] MCV 96.1 80.0 - 100.0 fL 12/27/2024 7:01 PM EDT [facility] MCH 31.7 26.0 - 34.0 pg 12/27/2024 7:01 PM EDT [facility] MCHC 32.9 30.7 - 35.5 g/dL 12/27/2024 7:01 PM EDT [facility] RDW 12.8 <=14.9 % 12/27/2024 7:01 PM EDT [facility] Platelet 488(H) 155 - 369 x10(3)/mcL 12/27/2024 7:01 PM EDT [facility] MPV 9.4 8.8 - 12.5 fL 12/27/2024 7:01 PM EDT [facility] Neut Percent 67.2 % 12/27/2024 7:01 PM EDT [facility] Comment:Neutrophils equals s egs plus bands Imm Gran% 0.1 % 12/27/2024 7:01 PM EDT [facility] Comment:Automated count of m etamyelocytes, myelocytes and promyelocytes. Lymph Percent 21.9 % 12/27/2024 7:01 PM EDT [facility] Ross Percent 7.8 % 12/27/2024 7:01 PM EDT [facility] Eos Percent 2.3 % 12/27/2024 7:01 PM EDT [facility] Baso Percent 0.7 % 12/27/2024 7:01 PM EDT [facility], [facility] Neut # 5.0 1.6 - 6.1 x10(3)/[facility] 12/27/2024 7:01 PM EDT [facility] Comment:Neutrophils equals s egs plus bands IMMGRAN# 0.0 0.0 - 0.1 x10(3)/mcL 12/27/2024 7:01 PM EDT [facility] Comment:Automated count of m etamyelocytes, myelocytes and promyelocytes. An absolute IG <0.1 is reported as 0.0. Lymph # 1.6 1.2 - 3.9 x10(3)/mcL 12/27/2024 7:01 PM EDT [facility] Ross # 0.6 0.3 - 0.9 x10(3)/mcL 12/27/2024 7:01 PM EDT [facility] Eos# 0.2 0.0 - 0.5 x10(3)/[facility] 12/27/2024 7:01 PM EDT [facility] Baso # 0.1 0.0 - 0.1 x10(3)/[facility] 12/27/2024 7:01 PM EDT [facility], [facility] Blood VENOUS BLOOD / Unknown Venipuncture / Unknown 12/27/2024 3:32 PM EDT 12/27/2024 3:32 PM EDT us Mildred De CUSTOM SHOE DESIGNER AND MAKER HEMATOLOGY ORDERABLES Final Result [facility] [address] [facility] , [place] [address] * HUMAN CHORIONIC GONADOTROPIN QUANTITATIVE (12/27/2024 3:32 PM EDT) [facility] Hcg Quant <1 <5 mIU/mL 12/27/2024 7:3 8 PM EDT [facility] Blood VENOUS BLOOD / Unknown Venipuncture / Unknown 12/27/2024 3:32 PM EDT 12/27/2024 3:32 PM EDT Narrative [facility], [facility] - 12/27/2024 7:38 PM EDT Female (non-): [...] interfere with this immunoassay test. Mildred De CUSTOM SHOE DESIGNER AND MAKER CHEMISTRY ORDERABLES Final Result [facility], [address] , [place] [address] * (ABNORMAL) COMPREHENSIVE METABOLIC PANEL (12/27/2024 3:32 PM EDT) Sodium 139 136 - 145 mmol/L 12/27/2024 7:26 PM EDT [facility] Potassium 4.7 3.5 - 5.0 mmol/L 12/27/2024 7:26 PM EDT [facility] Chloride 102 98 - 107 mmol/L 12/27/2024 7:26 PM EDT [facility] Total CO2 23 22 - 29 mmol/L 12/27/2024 7:26 PM EDT [facility] Anion Gap 14 7 - 16 mmol/L [...] mg/dL 12/27/2024 7:26 PM EDT [facility] Albumin 4.8 3.5 - 5.2 gm/dL 12/27/2024 7:26 PM EDT [facility] Total Protein 8.1 6.4 - 8.3 gm/dL 12/27/2024 7:26 PM EDT [facility] Bili Total 1.6(H) 0.2 - 1.3 mg/dL 12/27/2024 7:26 PM EDT [facility] ALT 22 <=41 U/L 12/27/2024 7:26 PM EDT [facility] AST 17 <=40 U/L 12/27/2024 7:26 PM EDT [facility] Alk Phos 122 36 - 123 U/L 12/27/2024 7:26 PM EDT [facility] eGFR (CKD-EPIcr 2020) 101 >=60 mL/min/1.7 3 m2 12/27/2024 7:26 PM EDT [facility], [facility] Comment:Estimated GFR was ca lculated using the CKD-EPIcr (2020) equation refit without race. The equation is recommended by the National Kidney Foundation - [place] [employer] of Nephrology Task Force. Blood VENOUS BLOOD / Unknown Venipuncture / Unknown 12/27/2024 3:32 PM EDT 12/27/2024 3:32 PM EDT Mildred De CUSTOM SHOE DESIGNER AND MAKER CHEMISTRY ORDERABLES Final Result [facility] [address] [facility] , [address] [place] [id number] * WRAPPING CHECKER CYTOLOGY REQUEST (PAP ONLY) (11/18/2021 2:49 PM EST) CASE REPORT Gynecologic Cytology Report Case: [id number] Authorizing Provider: Destinee Galvez MD Collected: 11/18/2021 1449 Ordering Location: [facility] Received: 11/18/2021 144 First Screen: Saloni Ibarra, CT Specimen: LIQUID-BASED PAP - CERVICAL/ENDOCERV ICAL, Cervix, Endocervical 11/20/2021 2:46 PM EST [facility] PAP FINAL DIAGNOSIS Negative for intraepithelial lesion or malignancy 11/20/2021 2:46 PM EST [facility] at 1446 EST MICROSCOPIC DESCRIPTION Microscopic examination is performed and the findings corroborate the diagnosis. 11/20/2021 2:46 PM EST [facility] PAP SMEAR ADEQUACY Satisfactory for evaluation 11/20/2021 2:46 PM EST [facility] ENDOCERVICAL T-ZONE Transformation zone present 11/20/2021 2:46 PM EST [facility] EMBEDDED IMAGES 2:46 PM EST [facility] PAP DISCLAIMER The Pap Smear is a screening test that aids in the detection of cervical cancer and cancer precursors. Both false positive and false negative results can occur. The test should be used at regular intervals, and positive results should be confirmed before definitive therapy. Processed using the InkerwangPrep Traditional [employer] Health Practitioner Automated cytology screening device ([employer]). 11/20/2021 2:46 PM EST [facility] Thin Prep ENDOCERVICAL STRUCTURE / Unknown 11/18/2021 2:49 PM EST 11/18/2021 2:49 PM EST us Destinee Galvez MD CYTOLOGY ORDERABLES Final R esult [facility] [address] [place] [address] from Last 3 Months or Most Recently Relevant to Health Maintenance [place] [facility] [place] [address] [employer] [place] [place] [address] [facility] [place] [employer] [place] Advance Directives For more information, please contact: [phone] Documents on File Type Date Recorded Patient Director Sales Support Expl anation [employer] ORDER 02/19/2023 8:46 AM [employer] ORDER 09/01/2022 3:46 PM Power of Internal Control Specialist 06/17/2022 1:13 PM [employer] ORDER 06/11/2022 [...] 10:44 PM 01/29/2020 5:58 PM Care Teams Person Investigator Relationship Specialty Start Date End Date Slick Owens MD [address] [place] [address] PCP - General Family Medicine 03/01/24
[2025-03-16] MEDS: RABIES VACCINE (PCEC)/PF 2.5 UNIT VIAL IM (14:47)
== END 2025-03-16 14:53 | disposition home or self-care (01) ==
LOC: INF 14:40
PROVIDERS: PCP Nurse Practitioner; Visit Provider Emergency Medicine
DX: S61.452A Open bite of left hand, initial encounter (principal); Z23 Encounter for immunization
CPT/HCPCS: 90675; 96372

== ENCOUNTER 2025-04-02 19:17 | Outpatient (CLI) | payer OTHER, SELFPAY ==
--- OUTSIDE RECORDS SUMMARY | 2023-04-22 15:45 | XMS_ITS | Encounter Summary ---
Author Organization [place] [address] Care Team Providers Care Clerical Investigator Name Role Phone Unavailable Primary Care Provider Unavailabl e Encounter Details Date Type Department Care Team (Latest Contact Info) Description 04/22/2023 3:45 PM EDT Hospital Encounter [facility] [address] [place] [address] Left without seen Social History Tobacco Use Types Packs/Day Years Used Date Smoking Tobacco: Every Day Cigarettes 1 12.8 Started: 06/07/2012 Smokeless Tobacco: Never Alcohol Use Standard Drinks/Week Comments Not Currently 6 (1 standard drink = 0.6 oz pure alcohol) Mj Anderson - 6 per day. Overall Financial Resource Strain ([facility]) Answe r Date Recorded How hard is it for you to pa y for the very basics like food, housing, medical care, and heating? Not hard at all 01/07/2021 PHQ-2 Answer Date Recorded PHQ-2 Total Score 0 11/18/2021 [facility] of Occupat ional Health - Occupational Stress [...] Entry Date Author No 11/18/2021 2:29 PM EST Cali Annmarie R documented in this encounter Plan of Treatment Upcoming Encounters Date Type Department Care Team (Late st Contact Info) Description 04/03/2025 3:45 PM EDT Office Visit [facility] [place] [address] [place] [address] Mildred De, [employer]AIL [employer] ASSOCIATE [address] [place] [address] documented as of this encounter Goals Goal [...]
[2025-04-02] MEDS: RABIES VACCINE (PCEC)/PF 2.5 UNIT VIAL IM (19:00)
--- OUTSIDE RECORDS SUMMARY | 2025-04-02 19:21 | XMS_ITS | Encounter Summary ---
Author [place] [address] Care Team Providers Care Special Procedures Nurse Name Role Phone Slick Owens MD Primary Care Provider [phone] Reason for Visit * Reason Onset Date Comments Refill 12/25/2024 med refill- aski ng for Trazodone PRIOR to upcoming appt on 12/27- please call mom Encounter Details Date Type Department Care Team (Late st Contact Info) Description 12/25/2024 Telephone SEP [facility] [address] [place] [address] Mildred De APRN [address] [place] [address] Refill (med refill- asking for Trazodone [...] Date Recorded PHQ-2 Total Score 0 11/18/2021 [facility] [place] of Occupat ional Health - Occupational Stress [...] on hand: 0- pt was admitted at [facility] and according to mom when she was discharged she wasn't given this medication at all. She's been without it for 3 days and not doing good withoutit Future appt date w/ prescribing provider: 12/27 Pharmacy & Location: [id number] - [place] [address] - [address] [phone] Return Method of Communication: Phone Call Additional [...] 3:45 PM EDT Office Visit [facility] [place] [facility] [address] [place] [phone] Mildred De APRN [address] [place] [address] documented as of this encounter Goals Goal [...] on filedocumented in this encounter Care Teams Special Procedures Nurse Relationship Specialty Start Date End Date Slick Owens MD [address] [place] [address] PCP - General Family Medicine 03/01/24 documented as of this encounter
--- OUTSIDE RECORDS SUMMARY | 2025-04-02 19:21 | XMS_ITS | Encounter Summary ---
Author [place] [address] Care Team Providers Care Bell Tier Name Role Phone Slick Owens MD Primary Care Provider [phone] Reason for Visit * Reason Onset Date Comments Symptoms (Only Use If Pt Pus hes Back On Scheduling A Visit) 02/27/2025 Cat bite Follow Up 02/27/2025 Mother calling b ack about this Encounter Details Date Type Department Care Team (Late st Contact Info) Description 02/27/2025 Telephone SEP Mario [address] [place] [address] Mildred De APRN [address] [place] [address] Symptoms (Only Use If Pt Pushes [...] Date Recorded PHQ-2 Total Score 0 11/18/2021 [facility] [place] of Occupat ional Health - Occupational Stress [...] I advised that it was 02/14/2017 per [facility]. I reiterated PATO's recommendations below- needs to [...] No pain Desired Outcome: Advice Pharmacy & Location:[facility] #[id number] - [place] [address] - [address] [place] [phone] [[id number]] Return Method of Communication: Phone Call Was patient transferred to Nurse Triage for additional help? N/A Additional Information: Please advise,thank you documented in this encounter Plan of Treatment Upcoming Encounters Date Type Department Care Team (Late st Contact Info) Description 04/03/2025 3:45 PM EDT Office Visit [facility] [address] [place] [phone] Mildred De APRN [address] [place] [address] documented as of this encounter Goals Goal [...] on filedocumented in this encounter Care Teams Bell Tier Relationship Specialty Start Date End Date Slick Owens MD [address] [facility] [place] [id number] PCP - General Family Medicine 03/01/24 documented as of this encounter
--- OUTSIDE RECORDS SUMMARY | 2025-04-02 19:21 | XMS_ITS | Encounter Summary ---
Author Organization [place] [address] Care Team Providers Care Construction Manager Name Role Phone Slick Owens MD Primary Care Provider [phone] Reason for Visit * Reason Onset Date Comments Other 02/28/2025 Question on rabi es vaccine Patient Returning Call 02/28/2025 Vaccine Encounter Details Date Type Department Care Team (Late st Contact Info) Description 02/28/2025 Telephone SEP Mario [address] [place] [address] Mildred De APRN [address] [place] [address] Other (Question on rabies vaccine ); [...] Date Recorded PHQ-2 Total Score 0 11/18/2021 [facility] [place] of Occupat ional Health - Occupational Stress [...] Miscellaneous Notes * Telephone Encounter - Georgina Acuañ MA - 03/01/2025 1:22 PM EDT Attempted [...] has additional questions: Mother stated that the world renowned chef and restaurant owner of the cat was going to send recordspf vaccine to PCP and she wants to know if she got them Further follow-up needed? yes Return Method of Communication: Phone Call Additional Information: Mother stated that she gave the world renowned chef and restaurant owner of the cat information on where it [...] [facility] pt [facility] Rabies vaccine got the [...] EDT Office Visit [facility] [place] [address] [place] [phone] Mildred De APRN [address] [place] [address] documented as of this encounter Goals Goal [...] on filedocumented in this encounter Care Teams Construction Manager Relationship Specialty Start Date End Date Slick Owens MD [address] [place] [address] [address] PCP - General Family Medicine 03/01/24 documented as of this encounter
--- OUTSIDE RECORDS SUMMARY | 2025-04-02 19:21 | XMS_ITS | Encounter Summary ---
Author Organization [place] [address] Care Team Providers Care Air Brake Mechanic Name Role Phone Slick Owens MD Primary Care Provider [phone] Encounter Details Date Type Department Care Team (Late st Contact Info) Description 02/27/2025 Orders Only SEP Mario [address] [place], [place] [address] Danielle Wilkerson, [facility] Social History Tobacco Use Types Packs/Day [...] Date Recorded PHQ-2 Total Score 0 11/18/2021 [facility] [place] of Occupat ional Health - Occupational Stress [...] muscle every 28 days. 1 Each 11 02/27/2025 documented in this encounter Plan of Treatment Upcoming Encounters Date Type Department Care Team (Late st Contact Info) Description 04/03/2025 3:45 PM EDT Office Visit [facility] [place] [address] [place], [place] [address] Mildred De APRN [address] [place] [address] documented as of this encounter Goals Goal [...] on filedocumented in this encounter Care Teams Air Brake Mechanic Relationship Specialty Start Date End Date Slick Owens MD [address] [facility] [place] [address] [address] PCP - General Family Medicine 03/01/24 documented as of this encounter
--- OUTSIDE RECORDS SUMMARY | 2025-04-02 19:21 | XMS_ITS | Encounter Summary ---
Author [place] [address] Care Team Providers Care Semiconductor Engineer Name Role Phone Slick Owens MD Primary Care Provider [phone] Reason for Visit * Reason Onset Date Comments Other 03/28/2025 Vivatrol appoint ment Medication Management 03/28/2025 Vivitrol Encounter Details Date Type Department Care Team (Late st Contact Info) Description 03/28/2025 Telephone SEP Mario [address] [place] [address] Mildred De, PATO [address] [address] Other (Vivatrol appointment); Medication Management (Vivitrol) Social History Tobacco Use Types Packs/Day Years [...] Date Recorded PHQ-2 Total Score 0 11/18/2021 [facility] [place] of Occupat ional Health - Occupational Stress [...] encounter Miscellaneous Notes * Telephone Encounter - Girish Ocampo MA - 04/02/2025 2:41 PM EDT Mother informed * Telephone Encounter - Antwon Arshad MD - 04/02/2025 2:39 PM EDT Yes, she can skip the pill naltrexone tomorrow morning and get the injection tomorrow at her visit * Telephone Encounter - Girish Ocampo MA - 04/02/2025 1:42 PM EDT Can you take a look at this since Mildred is out? * Telephone Encounter - Rani Posada MA - 04/02/2025 1:35 PM EDT Select the most appropriate reason for this telephone message: Medication Management/Problem Who is calling? Other Nazia (mother) What medication(s) do you have concerns about: Vivitrol Prescribing provider: Mildred De MD What are your concerns/request: Mom states Yuliya is scheduled to have vivitrol injection tomorrow, but states she is also taking the pill form. Mom is asking if she should skip pill form of vivitrol tomorrow since she's receiving injection? Desired outcome: Other Advice Last appointment date: 01/09/25 Pharmacy: [id number] [place] [address] - [address] - [phone] [[id number]] Return Method of Communication: Phone Call, Nazia (mom) asking if a VM can be left if she does notanswer. Additional Information: Asking if pill form of vivitrol should be held prior to [facility] * Telephone Encounter - Girish Ocampo MA - 03/28/2025 2:36 PM EDT Appt made * Telephone Encounter - Danielle Wilkerson CCMA - 03/28/2025 2:31 PM EDT We are seeing her here. I have a shot here for her. I tried to call them about it a couple weeks ago. * Telephone Encounter - Girish Ocampo MA - 03/28/2025 2:14 PM EDT Is she a patient here? Here PCP is not listed as Mildred but you all have seen her and have been sending in medication for her ? * Telephone Encounter - Naz Knox CCMA - 03/28/2025 2:04 PM EDT Select the most appropriate reason for this telephone message: Other Who is calling (name & relationship to patient if not the patient): Patient's mom What is needed OR why are they calling: She wants to know if she can be seen for vivatrol injections? When is this needed by: today Where does this information need to go: Dr. Del Valle and/or Mildred De Return Method of Communication: Phone Call Additional information:N/A documented in this encounter Plan of Treatment Upcoming Encounters Date Type Department Care Team (Late st Contact Info) Description 04/03/2025 3:45 PM EDT Office Visit [facility] [place] [facility] [address] [place], [place] [address] Mildred De APRN [address] [facility] [address] [place], [place] [phone] documented as of this encounter Goals Goal [...] on filedocumented in this encounter Care Teams Semiconductor Engineer Relationship Specialty Start Date End Date Slick Owens MD [address] [facility] Alex [address] [address] PCP - General Family Medicine 03/01/24 documented as of this encounter
--- OUTSIDE RECORDS SUMMARY | 2025-04-02 19:21 | XMS_ITS | Encounter Summary ---
Author Organization [place] [address] Care Team Providers Care Retort Or Condenser Press Operator Name Role Phone Slick Owens MD Primary Care Provider [phone] Encounter Details Date Type Department Care Team (Latest Contact Info) Description 02/18/2025 External Contact [facility] [address] [place] [address] [place] [address] Salima Baez MD [address] [place] [address] Constipation, unspecified constipation type (Primary Dx); Dermatitis; [...] Date Recorded PHQ-2 Total Score 0 11/18/2021 [facility] [place] of Occupat ional Health - Occupational Stress [...] TNP 02/14/2025 03:11 PM Specimen Status Report [facility] 02/14/2025 03:11 PM MCV 99 fL 02/14/2025 03:11 PM Neutrophils 54 % 02/14/2025 03:11 PM Hemoglobin A1c 5.2 % 02/14/2025 03:11 PM RDW 12.1 % 02/14/2025 03:11 PM MCHC 32.4 g/dL 02/14/2025 03:11 PM MCH 32.0 pg 02/14/2025 03:11 PM [facility] 02/14/2025 03:11 PM Immature Grans (Abs) [...] Use Disorder: -Declines tobacco/nicotine cessation. -Continue to beaver patient on the risks associated with tobacco/nicotine [...] Office Visit [facility] [place] [facility] [address] [place] [address] Mildred De APRN [address] [place] [address] documented as of this encounter Goals Goal [...] organs documented in this encounter Care Teams Retort Or Condenser Press Operator Relationship Specialty Start Date End Date Slick Owens MD [address] [place] [address] PCP - General Family Medicine 03/01/24 documented as of this encounter
--- OUTSIDE RECORDS SUMMARY | 2025-04-02 19:21 | XMS_ITS | Encounter Summary ---
Author [place] [address] Care Team Providers Care Bee Rancher Name Role Phone Slick Owens MD Primary Care Provider [phone] Reason for Visit * Reason Onset Date Comments Other 02/21/2025 NEEDS TO DISCUSS VIVITROL Relaying Information 02/21/2025 injection Encounter Details Date Type Department Care Team (Late st Contact Info) Description 02/21/2025 Telephone SEP Mario [address] [place] [address] Mildred De APRN [address] [address] Other (NEEDS TO DISCUSS VIVITROL); Relaying [...] Date Recorded PHQ-2 Total Score 0 11/18/2021 [facility] [place] of Occupat ional Health - Occupational Stress [...] No answer, mailbox full. [facility] Ok to schedule office [...] Vivitrol shot. Patient was just released from [facility]. Please call mom back to advise. documented in this encounter Plan of Treatment Upcoming Encounters Date Type Department Care Team (Late st Contact Info) Description 04/03/2025 3:45 PM EDT Office Visit MARY ANN [place] [address] [place], [place] [address] Mildred De APRN [address] [place] [address] documented as of this encounter Goals Goal [...] on filedocumented in this encounter Care Teams Bee Rancher Relationship Specialty Start Date End Date Slick Owens MD [address] [place] [address] PCP - General Family Medicine 03/01/24 documented as of this encounter
--- OUTSIDE RECORDS SUMMARY | 2025-04-02 19:21 | XMS_ITS | Encounter Summary ---
Author [place] [address] Care Team Providers Care Home Stager Name Role Phone Slick Owens MD Primary Care Provider [phone] Reason for Visit * Reason Onset Date Comments Medication Management 12/28/2024 Decrease d ose on prozac, add buspar to daily medication regimen, and mom wants to talk to nurse at office regarding labs for 12/27/24 Encounter Details Date Type Department Care Team (Late st Contact Info) Description 12/28/2024 Telephone [facility] [address] [place] [address] Mildred De APRN [address] [place] [address] Medication Management (Decrease dose on prozac, [...] Date Recorded PHQ-2 Total Score 0 11/18/2021 [facility] - Occupational Stress Questionnaire Answer Date [...] 12/27/24 last seen by PATO De Pharmacy: [facility] #[id number] - [place] [address] - [address] - [phone] Return Method of Communication: Phone Call Additional [...] PM EDT Office Visit [facility] [place] [facility] [address] [place] [phone] Mildred De, PENETRATION TESTER [address] [facility] [place] [address] documented as of this encounter Goals Goal [...] on filedocumented in this encounter Care Teams Home Stager Relationship Specialty Start Date End Date Slick Owens MD [address] [address] PCP - General Family Medicine 03/01/24 documented as of this encounter
--- OUTSIDE RECORDS SUMMARY | 2025-04-02 19:21 | XMS_ITS | Encounter Summary ---
Author [place] [address] Care Team Providers Care Ramp Service Employee Name Role Phone Slick Owens MD Primary Care Provider [phone] Reason for Visit * Reason Onset Date Comments Medication Refill 03/22/2025 Encounter Details Date Type Department Care Team (Late st Contact Info) Description 03/22/2025 Nurse Triage [facility] [address] [place] [address] Reba [place] RN Social History Tobacco Use Types Packs/Day Years [...] Date Recorded PHQ-2 Total Score 0 11/18/2021 [facility] [place] of Occupat ional Health - Occupational Stress [...] Assessment Author No 11/18/2021 2:29 PM Annmarie Websetr * Does this person have serious difficulty [...] encounter Miscellaneous Notes * Telephone Encounter - Reba [place] RN - 03/22/2025 8:09 PM EDT Nurse Triage Call -Chief Complaint: abilify refill -Reported by: Parent -Vitals: No vitals obtained on this call -Disposition per protocol: on call now -Follow up/Concerns: Reason for Disposition [1] Prescription refill request for ESSENTIAL medicine (i.e., likelihood of harm to patient if not taken) AND [2] triager unable to refill per department policy Answer Assessment - Initial Assessment Questions 1. NAME of MEDICINE: What medicine(s) are you calling about? Abilify 2. QUESTION: What is your question or concern? (e.g., side effect, took wrong dose, how to take, need more medicine) needs refill 3. PRESCRIBER: Who prescribed the medicine? The triager should check to see if the medicine is onthe patient's hospice medication list. Shelter provider 4. REFILL NEEDED: If additional supply or refill of medicine is needed, ask: How much medicine do you have left right now? (e.g., how many pills, how many days' supply) none 5. SYMPTOMS: Do you (your loved one; patient) have any symptoms? If Yes, ask: What symptoms are you having? How bad are the symptoms? (e.g., mild, moderate, severe) 6. CALLER's COPING: How are you doing? How are other family members and loved ones doing? Protocols used: Hospice - Medication Question or Refill Call-A-, Medication Refill and Renewal Call-A-AH documented in this encounter Plan of Treatment Upcoming Encounters Date Type Department Care Team (Late st Contact Info) Description 04/03/2025 3:45 PM EDT Office Visit MARY [facility] [place] [address] [place] [phone] Mildred De APRN [address] [place] [address] documented as of this encounter Goals Goal [...] on filedocumented in this encounter Care Teams Ramp Service Employee Relationship Specialty Start Date End Date Slick Owens MD [address] [facility] [place] [address] PCP - General Family Medicine 03/01/24 documented as of this encounter
--- OUTSIDE RECORDS SUMMARY | 2025-04-02 19:21 | XMS_ITS | Clinical Summary ---
Author Organization [facility] Address [address] [place] [address] Phone Care Team Providers Care Open Die Inspector Name Role Phone Slick Owens MD Primary Care Provider [phone] Allergies No known active allergies Medications * [...] Mailed tls Last Miguel as expected 01/31/21 [id number] 02/25/2022 No Show Galvez - second letter [...] 01/05/2023 Hx of pancreatitis 01/05/2023 Overview (12/10/2023): [place] to be related to alcohol intake No [...] with her. I told her to take [id number] Zyrtec or Claritin in addition to taking [...] assessed and discussed today Alcohol dependence with [facility] ecified alcohol-induced disorder 01/05/2023 12/27/2024 Overview (12/10/2023): [...] organization. Date Type Department Care Team Description 03/28/2025 [facility]phone [facility] [address] [place], [place] [address] Mildred De APRN Other (Vivatrol appointment); Medication Management (Vivitrol) 03/22/2025 Nurse Triage [facility] [address] [place] [address] Reba Montgomery RN 02/28/[address] [place] [address] ConyersMildred, RN TRAVEL Other (Question on rabies vaccine ); Patient Returning Call (Vaccine ) 02/27/[address] [place] [address] KenishaMildred, RN TRAVEL Symptoms (Only Use If Pt Pushes Back On Scheduling A Visit) (Cat bite ); Follow Up (Mother calling back about this ) 02/27/2025 Orders Only [address] [place] [address] Danielle Wilkerson CCMA 02/21/[address] [place] [address] Mildred De, PATO Other (NEEDS TO DISCUSS VIVITROL); Relaying Information (injection ) 02/18/2025 External Contact [facility] [place] [address] [place] [address] Salima Baez MD Constipation, unspecified constipation type (Primary Dx); Dermatitis; Abrasions of multiple sites; Hypoglycemia; Hypertriglyceridemia ; Macrocytosis; Overweight (BMI 25.0-29.9); Nicotine use disorder; Screening for STDs (sexually transmitted diseases); Vaginal itching 02/13/2025 External Contact [facility] [place] [address] [place] [address] Ryanne Lucio APRN Medical clearance for psychiatric admission (Primary Dx); Alcohol use disorder, severe, dependence (HCC); Marijuana dependence (HCC); Screening for STDs (sexually transmitted diseases); Vaginal itching; Abrasions of multiple sites; Ecchymosis; Overweight (BMI 25.0-29.9); Tobacco abuse 01/27/[address] [place] [address] Mildred De APRN Medication Refill 01/09/2025 6:15 PM EDT [facility] Visit [facility] [address] [address] Destinee Madison PA-C Facial swelling (Primary Dx) from Last 3 Months Immunizations Immunization Administration [...] Date Recorded PHQ-2 Total Score 0 11/18/2021 [facility] [place] of Occupat ional Health - Occupational Stress [...] 01/09/2025 6:15 PM EDT Plan of Treatment Upcoming Encounters Date Type Department Care Team (Late st Contact Info) Description 04/03/2025 3:45 PM EDT Office Visit [facility] [place] [facility] [address] [place] [address] Kenisha Mildred, RN TRAVEL [address] [place], [place] [address] Health Maintenance Due Date Last Done Comments [...] Tobacco Free Lifestyle No Reyna Bruce MA Procedures Procedure Name Priority Date/Time Associated Diagnosis Comments SOLAR IN[employer]ALLATION FOREMAN CYTOLOGY REQUEST (PAP ONLY) Routine 11/18/2021 2:49 PM EST Well woman exam with routine gynecological exam from Last 3 Months or Most Recently Relevant to Health Maintenance Results * [employer] CYTOLOGY REQUEST (PAP ONLY) (11/18/2021 2:49 PM EST) CASE REPORT Gynecologic Cytology Report Case: [id number] Authorizing Provider: Destinee Galvez MD Collected: 11/18/2021 1449 Ordering Location: [facility] Received: 11/18/2021 1449 First Screen: Saloni Ibarra CT Specimen: LIQUID-BASED PAP - CERVICAL/ENDOCERV ICAL, Cervix, Endocervical 11/20/2021 2:46 PM EST [facility] PAP FINAL DIAGNOSIS Negative for intraepithelial lesion or malignancy 11/20/2021 2:46 PM EST [facility] at 1446 EST MICROSCOPIC DESCRIPTION Microscopic examination is performed and the findings corroborate the diagnosis. 11/20/2021 2:46 PM EST [facility] PAP SMEAR ADEQUACY Satisfactory for evaluation 11/20/2021 2:46 PM EST [facility] ENDOCERVICAL T-ZONE Transformation zone present 11/20/2021 2:46 PM EST [facility] EMBEDDED IMAGES 2:46 PM EST [facility] PAP DISCLAIMER The Pap Smear is a screening test that aids in the detection of cervical cancer and cancer precursors. Both false positive and false negative results can occur. The test should be used at regular intervals, and positive results should be confirmed before definitive therapy. Processed using the ThinPrep Laundry Routeman Automated cytology screening device ([employer]). 11/20/2021 2:46 PM EST [facility] Thin Prep ENDOCERVICAL STRUCTURE / Unknown 11/18/2021 2:49 PM EST 11/18/2021 2:49 PM EST us Destinee Galvez MD CYTOLOGY ORDERABLES Final R esult [facility] [address] [place] [address] from Last 3 Months or Most Recently Relevant to Health Maintenance Insurance [employer] [facility] [place] [address] [facility] [place] [address] [facility] [place] [address] Advance Directives For more information, please contact: [phone] Documents on File Type Date Recorded Patient Seal Skinner Expl anation [employer]IP ORDER 02/19/2023 8:46 AM GUARDIAN[employer]IP ORDER 09/01/2022 3:46 PM Power of Poultry Farmer Egg 06/17/2022 1:13 PM GU[employer]IAN[employer]IP ORDER 06/11/2022 3:05 [...] 10:44 PM 01/29/2020 5:58 PM Care Teams Open Die Inspector Relationship Specialty Start Date End Date Slick Owens MD [address] [address] PCP - General Family Medicine 03/01/24
--- OUTSIDE RECORDS SUMMARY | 2025-04-02 19:21 | XMS_ITS | Encounter Summary ---
Author Organization [facility] Address [facility] [place] [address] Care Team Providers Care Lead Software Engineer Name Role Phone Destinee Galvez MD Primary Care Provider Unav ailable Cira Mosqueda BS, COS Unavailable Unavail able Destinee Galvez MD Primary Care Provider Unav ailable Brenden Connell DO Primary Care Provider [phone] Slick Owens MD Primary Care Provider [phone] Encounter Details Date Type Department Care Team (Late st Contact Info) Description 08/06/2021 Hospital Encounter [facility] [place] [address] Social History Tobacco [...] Date Recorded PHQ-2 Total Score 0 11/18/2021 [facility] [place] of Occupat ional Health - Occupational Stress [...] of your drinking? 0 08/24/2022 2:00 AM Stepahnie Saxena RN Has a relative, friend, doct [...] 12:58 PM EDT Dominique Castro RN * [place] Suicide Severity Rating Scale (Q shift for [...] EDT Office Visit [facility] [place] [address] [place] [address] Mildred De APRN [address] [place] [address] documented as of this encounter Goals Goal [...] on filedocumented in this encounter Care Teams Lead Software Engineer Relationship Specialty Start Date End Date Destinee Galvez MD PCP - General Family Medicine 12/19/12 04/09/22 Destinee Galvez MD PCP - General Family Medicine 08/24/22 08/30/22 Brenden Connell DO [address] [place] [address] PCP - General Family Medicine 10/17/22 01/07/23 Slick Owens MD [address] [address] PCP - General Family Medicine 03/01/24 Cira Mosqueda, BS, COS Case Piano And Organ Refinisher 10/08/21 01/19/22 documented as of this encounter
--- OUTSIDE RECORDS SUMMARY | 2025-04-02 19:21 | XMS_ITS | Encounter Summary ---
Author Organization [place] [address] Care Team Providers Care Counter Hop Name Role Phone Slick Owens MD Primary Care Provider [phone] Encounter Details Date Type Department Care Team (Latest Contact Info) Description 02/13/2025 External Contact [facility] [address] [place] [address] Ryanne Lucio, CLERICAL CLERK [address] [place] [address] Medical clearance for psychiatric admission (Primary [...] Date Recorded PHQ-2 Total Score 0 11/18/[address] [facility] [place] of Occupat ional Health - Occupational Stress [...] her. She was in a rehabilitation in [place], [place] and got out 03/2024. She was just here at [facility] back in 12/2024for detox and rehab. I [...] all into my house. I hired a corrosion control specialist when she was 19 YO to get [...] drinking like 8 beers a day until, [facility] for 8 days in 2022 detox from ETOH, and was here in 12/2024 for ETOH/Meth detox/rehab. I did a home drug test on 01/08/2025 Barbiturates', benzo, suboxone, methadone, methamphetamines, PCP, LSD. History of Present Illness: Yuliya Ortiz is a 35 y.o. female seen today for medical clearance for admission to [facility]. The patient presents as a walk-in for [...] (HCC) - Risk and recommended cessation. - [facility] protocol in place. - Plan per psychiatry. [...] Tobacco abuse -Cessation product offered. -Continue to [place] patient on the risks associated with tobacco use and urge cessation. Consults/Follow-ups: PCP I conclude that this patient is medically stable for inpatient psychiatric care.: Yes Documentation was completed in both [employer] and also in the additional EMR system used at [facility]. Electronically Signed: Ryanne Lucio APRN 02/13/2025 3:14 PM This chart was completed using voice recognition technology and may contain unintended errors. documented in this encounter Plan of Treatment Upcoming Encounters Date Type Department Care Team (Late st Contact Info) Description 04/03/2025 3:45 PM EDT Office Visit [facility] [address] [place] [phone] Mildred De APRN [address] [place] [address] documented as of this encounter Goals Goal Patient Goal Type Associated Problems Recent Progress Patient-Stated? Author Blood Pressure < 140/90 Blood Pressure 140/86(2024 6:15 PM EDT) No Destinee Galvez MD Maintain a healthy diet, exercise regularly and maintain an ideal body weight General No Reyna Bruce MA Stay Tobacco Free Lifestyle Reyna Hair MA documented as of this encounter Visit [...] disorder documented in this encounter Care Teams Counter Hop Relationship Specialty Start Date End Date Slick Owens MD [address] [facility] [place] [address] PCP - General Family Medicine 03/01/24 documented as of this encounter
[2025-04-02 19:30] VITALS: BP 117/45; BP 117/75; PULSE 87; TEMP 36.9; O2SAT 100; BMI 28.3
== END 2025-04-02 19:31 | disposition home or self-care (01) ==
LOC: INF 19:19
PROVIDERS: PCP Nurse Practitioner; Visit Provider Nurse Practitioner
DX: Z23 Encounter for immunization (principal); T14.8XXA Other injury of unspecified body region, initial encounter; W55.01XA Bitten by cat, initial encounter; W55.03XA Scratched by cat, initial encounter
CPT/HCPCS: 90675; 96372